=== PATIENT | female | born 1970 | race Caucasian/White ===

== ENCOUNTER 2017-06-14 10:19 | Emergency (ER) | payer MEDICAID ==
[~2017-06-14] VITALS: Ht 162.6 cm; Wt 83.9 kg
[2017-06-14] MEDS ORDERED: TRILEPTAL150 MG PO (10:28)
[2017-06-14] MEDS ORDERED: VISTARIL50 MG PO (10:28)
[2017-06-14] MEDS ORDERED: BENZTROPINE MESY2 MG PO (10:29)
[2017-06-14] MEDS ORDERED: MINIPRESS5 MG PO (10:29)
[2017-06-14] MEDS ORDERED: NEURONTIN300 MG PO (10:29)
[2017-06-14] MEDS ORDERED: THORAZINE PO (10:30)
[2017-06-14] MEDS ORDERED: ELAVIL PO (10:30)
[2017-06-14] MEDS ORDERED: AUGMENTIN 875-1 EACH PO (10:49)
== END 2017-06-14 10:58 | disposition home or self-care (01) ==
LOC: ED 10:19
DX: H66.92 Otitis media, unspecified, left ear (principal); F43.10 Post-traumatic stress disorder, unspecified; F17.200 Nicotine dependence, unspecified, uncomplicated; Z98.51 Tubal ligation status; Z88.5 Allergy status to narcotic agent; Z79.899 Other long term (current) drug therapy
CPT/HCPCS: 99283

== ENCOUNTER 2017-06-22 20:05 | Emergency (ER) | payer MEDICAID ==
[~2017-06-22] VITALS: Ht 162.6 cm; Wt 83.9 kg
[~2017-06-22 20:05] MED LIST: AUGMENTIN 875-1 EACH PO; BENZTROPINE MESY2 MG PO; ELAVIL PO; MINIPRESS5 MG PO; NEURONTIN300 MG PO; THORAZINE PO; TRILEPTAL150 MG PO; VISTARIL50 MG PO
[2017-06-22] MEDS ORDERED: AMITRIPTYLINE H50 MG PO (20:24)
[2017-06-22] MEDS ORDERED: LEVOTHYROXINE150 MCG PO (20:24)
[2017-06-22] MEDS ORDERED: CHLORPROPAMIDE PO (20:26)
[2017-06-22] MEDS ORDERED: ZOVIRAX400 MG PO (20:26)
== END 2017-06-22 23:34 | disposition home or self-care (01) ==
LOC: ED 20:05
DX: R45.851 Suicidal ideations (principal); Z00.8 Encounter for other general examination; F43.10 Post-traumatic stress disorder, unspecified; F17.200 Nicotine dependence, unspecified, uncomplicated; Z87.891 Personal history of nicotine dependence; Z98.51 Tubal ligation status; Z88.5 Allergy status to narcotic agent; Z79.899 Other long term (current) drug therapy
CPT/HCPCS: 80053; 80176; 81001; 84443; 85025; 99283; G0480

== ENCOUNTER 2017-07-04 17:24 | Emergency (ER) | payer OTHER ==
[~2017-07-04] VITALS: Ht 162.6 cm; Wt 83.9 kg
[~2017-07-04 17:24] MED LIST changes: +AMITRIPTYLINE H50 MG PO; +CHLORPROPAMIDE PO; +LEVOTHYROXINE150 MCG PO; +ZOVIRAX400 MG PO
[2017-07-04] MEDS ORDERED: VIIBRYD10 MG PO (18:44)
[2017-07-04] MEDS ORDERED: CHLORPROMAZINE100 MG PO (18:45)
[2017-07-04] MEDS ORDERED: CHLORPROMAZINE25 MG PO (18:45)
[2017-07-04] MEDS ORDERED: TRAZODONE HCL100 MG PO (18:46)
== END 2017-07-04 20:50 | disposition home or self-care (01) ==
LOC: ED 17:24
DX: E03.9 Hypothyroidism, unspecified (principal); Z00.8 Encounter for other general examination; F17.200 Nicotine dependence, unspecified, uncomplicated; Z98.51 Tubal ligation status; Z88.1 Allergy status to other antibiotic agents; Z88.5 Allergy status to narcotic agent; Z79.899 Other long term (current) drug therapy
CPT/HCPCS: 80053; 80176; 81001; 84439; 84443; 84480; 84703; 85025; 99283; G0480

== ENCOUNTER 2017-07-18 12:11 | Emergency (ER) | payer OTHER ==
[~2017-07-18] VITALS: Ht 162.6 cm; Wt 83.9 kg
[~2017-07-18 12:11] MED LIST changes: +CHLORPROMAZINE100 MG PO; +CHLORPROMAZINE25 MG PO; +TRAZODONE HCL100 MG PO; +VIIBRYD10 MG PO
[2017-07-18] MEDS ORDERED: THORAZINE (12:28)
[2017-07-18] MEDS ORDERED: KETOROLAC TROME10 MG PO (13:06)
--- NOTE | 2017-07-18 18:49 | EKG ---
[facility] [address] [facility] [place] [address] Signed Normal sinus rhythm Normal ECG No previous ECGs available Confirmed by LAURA JEFFERS MD ([id number]) on 07/18/2017 6:48:54 PM Electronically Signed By: LAURA JEFFERS MD 07/18/17 1849 PATIENT NAME: FABIO OCAMPO Electrocardiogram DATE OF : 72 PHYSICIAN: LAURA JEFFERS MD REPORT #: [id number] REPORT IS CONFIDENTIAL AND NOT TO BE RELEASED WITHOUT AUTHORIZATION
[2017-07-19] MEDS ORDERED: LEVOTHYROXINE175 MCG PO (10:58)
== END 2017-07-18 13:25 | disposition home or self-care (01) ==
LOC: ED 12:11
DX: M94.0 Chondrocostal junction syndrome [Tietze] (principal); F17.200 Nicotine dependence, unspecified, uncomplicated; Z88.1 Allergy status to other antibiotic agents; Z88.5 Allergy status to narcotic agent; Z98.51 Tubal ligation status; Z79.899 Other long term (current) drug therapy
CPT/HCPCS: 80053; 84484; 85025; 93005; 93010; 96374; 96375; 99284; J1885; J2405

== ENCOUNTER 2017-07-19 10:07 | Emergency (ER) | payer OTHER ==
[~2017-07-19] VITALS: Ht 162.6 cm; Wt 83.9 kg
[~2017-07-19 10:07] MED LIST changes: +KETOROLAC TROME10 MG PO; +THORAZINE
[2017-07-19] MEDS ORDERED: LEVOTHYROXINE175 MCG PO (10:58)
== END 2017-07-19 11:09 | disposition home or self-care (01) ==
LOC: ED 10:07
DX: E03.9 Hypothyroidism, unspecified (principal); F17.200 Nicotine dependence, unspecified, uncomplicated; Z98.51 Tubal ligation status; Z88.1 Allergy status to other antibiotic agents; Z88.5 Allergy status to narcotic agent; Z79.899 Other long term (current) drug therapy
CPT/HCPCS: 99283

== ENCOUNTER 2017-10-20 08:37 | Emergency (ER) | payer OTHER ==
[~2017-10-20] VITALS: Ht 162.6 cm; Wt 83.9 kg
[~2017-10-20 08:37] MED LIST changes: +LEVOTHYROXINE175 MCG PO
[2017-10-20] MEDS ORDERED: HYDROXYZINE PAM50 MG PO (08:49)
[2017-10-20] MEDS ORDERED: NP THYROID30 MG PO (08:49)
[2017-10-20] MEDS ORDERED: ZITHROMAX250 MG PO (09:06)
[2017-10-20] MEDS ORDERED: VENTOLIN HFA18 GM INH (09:06)
[2018-01-11] MEDS ORDERED: LEVO-T150 MCG PO (19:03)
[2018-01-11] MEDS ORDERED: VISTARIL50 MG PO (19:03)
== END 2017-10-20 09:54 | disposition home or self-care (01) ==
LOC: ED 08:37
DX: J45.909 Unspecified asthma, uncomplicated (principal); E03.9 Hypothyroidism, unspecified; F17.200 Nicotine dependence, unspecified, uncomplicated; Z88.1 Allergy status to other antibiotic agents; Z88.5 Allergy status to narcotic agent; Z79.899 Other long term (current) drug therapy
CPT/HCPCS: 94640; 99283

== ENCOUNTER 2017-10-24 10:38 | Emergency (ER) | payer OTHER ==
[~2017-10-24] VITALS: Ht 162.6 cm; Wt 88.5 kg
[~2017-10-24 10:38] MED LIST changes: +HYDROXYZINE PAM50 MG PO; +NP THYROID30 MG PO; +VENTOLIN HFA18 GM INH; +ZITHROMAX250 MG PO
[2017-10-24] MEDS ORDERED: AUGMENTIN 875-1 EACH PO (11:03)
[2017-10-24] MEDS ORDERED: METHYLPREDNISOLO4 M1 PO (11:03)
[2017-10-24] MEDS ORDERED: VENTOLIN HFA18 GM INH (11:03)
[2018-01-11] MEDS ORDERED: VISTARIL50 MG PO (19:03)
[2018-01-11] MEDS ORDERED: LEVO-T150 MCG PO (19:03)
== END 2017-10-24 11:10 | disposition home or self-care (01) ==
LOC: ED 10:38
DX: J42 Unspecified chronic bronchitis (principal); F17.200 Nicotine dependence, unspecified, uncomplicated; E03.9 Hypothyroidism, unspecified; Z88.1 Allergy status to other antibiotic agents; Z79.899 Other long term (current) drug therapy
CPT/HCPCS: 99283

== ENCOUNTER 2018-01-09 14:51 | Emergency (ER) | payer OTHER ==
[~2018-01-09] VITALS: Ht 162.6 cm; Wt 88.5 kg
[~2018-01-09 14:51] MED LIST changes: +METHYLPREDNISOLO4 M1 PO
[2018-01-09] MEDS ORDERED: OLANZAPINE20 MG PO (15:10)
[2018-01-11] MEDS ORDERED: LEVO-T150 MCG PO (19:03)
[2018-01-11] MEDS ORDERED: VISTARIL50 MG PO (19:03)
== END 2018-01-09 15:30 | disposition home or self-care (01) ==
LOC: ED 14:51
DX: F39 Unspecified mood [affective] disorder (principal); F17.200 Nicotine dependence, unspecified, uncomplicated; E03.9 Hypothyroidism, unspecified; Z88.0 Allergy status to penicillin; Z88.5 Allergy status to narcotic agent; Z79.899 Other long term (current) drug therapy
CPT/HCPCS: 99283

== ENCOUNTER → 2018-01-11 | Emergency (ER) | payer OTHER ==
[~2018-01-11] VITALS: Ht 165.1 cm; Wt 88.5 kg
[~2018-01-11] MED LIST changes: +LEVO-T150 MCG PO; +OLANZAPINE20 MG PO
== END ==
LOC: ED 18:24
DX: G47.00 Insomnia, unspecified (principal); F17.200 Nicotine dependence, unspecified, uncomplicated; Z88.8 Allergy status to other drugs, medicaments and biological substances; Z88.5 Allergy status to narcotic agent; Z79.899 Other long term (current) drug therapy
CPT/HCPCS: 99281

== ENCOUNTER 2018-09-01 13:21 | Emergency (ER) | payer OTHER ==
[~2018-09-01] VITALS: Ht 165.1 cm; Wt 88.5 kg
[~2018-09-01 13:21] MED LIST changes: +OMEPRAZOLE20 MG PO; +ONDANSETRON ODT8 MG PO; +RESTORIL30 MG PO
--- OUTSIDE RECORDS SUMMARY | 2018-09-01 13:26 | XMS ---
PreManage Notification: FABIO OCAMPO Security Senior Staff Accountant Events No recent Security Events currently on file CRITERIA MET - Group Notification CARE PROVIDERS DANNIELLE BESS Physician Furniture Crater 03/16/2018-Current PHONE: [phone] [facility] Provider Current PHONE: [phone] BEENA MONAHAN Primary Care [facility] PHONE: [phone] Tomer Caldwell - Case or Frog Or Oyster Farmworker Current [employer] PHONE: [phone] Jerome has no Care Guidelines for this patient. Care History Substance Use/Overdose 10/31/2016 [facility] could benefit from a dual diagnosis evaluation for substance and mental health evaluation for treatment. Maria Guadalupe VISIT COUNT (12 MO.) 6 P[facility] TOTAL 6 NOTE: Visits indicate total known visits. ED/UCC VISIT TRACKING (12 MO.) 09/01/2018 13:22 [facility] [place] TYPE: Emergency COMPLAINT: - PELVIC PAIN/CRAMPS 03/15/2018 16:02 [facility] [place] TYPE: Emergency COMPLAINT: - ABD/BACK PAIN DIAGNOSES: - Allergy status to narcotic agent status - Allergy status to penicillin - Right upper quadrant pain - Other custodial (current) drug therapy - Nicotine dependence, unspecified, uncomplicated - Gastritis, unspecified, without bleeding 01/11/2018 18:25 [facility] [place] TYPE: Emergency COMPLAINT: - POSS INSOMNIA DIAGNOSES: - Allergy status to other drugs, medicaments and biological substances status - Allergy status to narcotic agent status - Nicotine dependence, unspecified, uncomplicated - Insomnia, unspecified - Other cooker casing (current) drug therapy 01/09/2018 14:53 [facility] [place] TYPE: Emergency COMPLAINT: - MEDICAL CLEARANCE DIAGNOSES: - Hypothyroidism, unspecified - Allergy status to penicillin - Allergy status to narcotic agent status - Nicotine dependence, unspecified, uncomplicated - Sleep disorder, unspecified - Other custodial (current) drug therapy - Unspecified mood [affective] disorder 10/24/2017 10:38 [facility] [place] TYPE: Emergency COMPLAINT: - CONGESTION,COUGH DIAGNOSES: - Nicotine dependence, unspecified, uncomplicated - Unspecified chronic bronchitis - Other custodial (current) drug therapy - Hypothyroidism, unspecified - Allergy status to other antibiotic agents status - Cough 10/20/2017 08:38 [facility] [place] TYPE: Emergency COMPLAINT: - COUGH DIAGNOSES: - Allergy status to narcotic agent status - Nicotine dependence, unspecified, uncomplicated - Allergy status to other antibiotic agents status - Hypothyroidism, unspecified - Unspecified asthma, uncomplicated - Other custodial (current) drug therapy - Cough INPATIENT VISIT TRACKING (12 MO.) No inpatient visits to display in this time frame [id number]
[2018-09-01] MEDS ORDERED: AMBIEN10 MG PO (13:47)
== END 2018-09-01 15:49 | disposition home or self-care (01) ==
LOC: ED 13:21
DX: N83.201 Unspecified ovarian cyst, right side (principal); G47.00 Insomnia, unspecified; F43.10 Post-traumatic stress disorder, unspecified; F17.200 Nicotine dependence, unspecified, uncomplicated; Z88.6 Allergy status to analgesic agent; Z88.5 Allergy status to narcotic agent; Z88.0 Allergy status to penicillin; Z79.899 Other long term (current) drug therapy
CPT/HCPCS: 76830; 76856; 81001; 87210; 87491; 87591; 99284-25

== ENCOUNTER 2018-11-03 11:38 | Emergency (ER) | payer OTHER ==
[~2018-11-03] VITALS: Ht 165.1 cm; Wt 90.7 kg
--- OUTSIDE RECORDS SUMMARY | ~2018-11-03 | XMS | Clinical Summary ---
Demographics + + + | Address | [address] | | | [place] [address] | + + + | Home Phone | | + + + | Preferred Language | Unknown | + + + | Marital Status | | + + + | Hindu Affiliation | Unknown | + + + | Race | Unknown | + + + | Ethnic Group | Unknown | + + + Author + + + | Author | [facility] [employer] | + + + | Organization | [facility] [employer] [facility] | + + + | Address | Unknown | + + + | Phone | Unavailable | + + + Support + + +---------+ + | Name | Relationship | Address | Phone | + + +---------+ + | Contact,No | ECON | Unknown | | + + +---------+ + Care Team Providers + +------+ + | Care Mining Engineering Technologist Name | Role | Phone | + [...] | + + + Plan of Treatment +--------+---------+ + + + | Date | Type | Specialty | Care Team | Description | +--------+---------+ + + + | 01/03/ | Office | | [place], | | | 2018 | Visit | | Katherine Meeks | | | | | | [address] | | | | | | [place] [address] | | | | | | [phone] | | | | | | | | +--------+---------+ + + + Results Not on filefrom Last 3 Months Insurance + +--------+ +------+-------+ + | Payer | Benefi | Subscriber | Type | Phone | Address | | | t Plan | ID | | | | | | / | | | | | | | Group | | | | | + +--------+ +------+-------+ + | MEDICAID | [place] | [id number] | | | [address] | | | [address] | | | | [place] | | | [place] | | | | [phone] | | | ELECTROENCEPHALOGRAPH TECHNICIAN | | | | | + +--------+ [...] | | al/Fam | | 1970 | [phone] | [place] [address] | | | emily | | | [phone] | | + +--------+ +--------+ + +"
--- OUTSIDE RECORDS SUMMARY | ~2018-11-03 | XMS | Clinical Summary ---
Demographics + + + | Address | [address] | | | [place] [address] | + + + | Home Phone | | + + + | Preferred Language | Unknown | + + + | Marital Status | | + + + | Evangelical Affiliation | Unknown | + + + | Race | Unknown | + + + | Ethnic Group | Unknown | + + + Author + + + | Author | [facility] [employer] | + + + | Organization | [facility] [employer] [facility] | + + + | Address | Unknown | + + + | Phone | Unavailable | + + + Support + + +---------+ + | Name | Relationship | Address | Phone | + + +---------+ + | Contact,No | ECON | Unknown | | + + +---------+ + Care Team Providers + +------+ + | Care Market Development Director Name | Role | Phone | + [...] | | | | | [place] [address] | | | | | | [phone] | | | | | | | [...] +------+-------+ + | MEDICAID | [place] | [id number] | | | [address] | | | [address] | | | | [place] | | | [place] | | | | [address] | | | RADIO HOST | | | | | + +--------+ [...] | | al/Fam | | 1970 | [phone] | [place] [address] | | | emily | | | [phone] | | + +--------+ +--------+ + +"
[~2018-11-03 11:38] MED LIST changes: +AMBIEN10 MG PO
--- OUTSIDE RECORDS SUMMARY | 2018-11-03 11:40 | XMS ---
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 Care History Substance Use/Overdose 10/31/2016 [facility] could benefit from a dual diagnosis evaluation for substance and mental health evaluation for treatment. Maria Guadalupe VISIT COUNT (12 MO.) 5 PING Puentes TOTAL 5 NOTE: Visits indicate total known visits. ED/UCC VISIT TRACKING (12 MO.) 11/03/2018 11:38 [facility] [place] TYPE: Emergency COMPLAINT: - RASH,SOB 09/01/2018 13:22 [facility] [place] TYPE: Emergency COMPLAINT: - PELVIC PAIN/CRAMPS DIAGNOSES: - Post-traumatic stress disorder, unspecified - Other long-term (current) drug therapy - Allergy status to narcotic agent status - Unspecified ovarian cyst, right side - Nicotine dependence, unspecified, uncomplicated - Pelvic and perineal pain - Allergy status to penicillin - Insomnia, unspecified - Allergy status to analgesic agent status 03/15/2018 16:02 [facility] [place] TYPE: Emergency COMPLAINT: - ABD/BACK PAIN DIAGNOSES: - Allergy status to narcotic agent status - Allergy status to penicillin - Right upper quadrant pain - Other dedicated intermodal truck driver (current) drug therapy - Nicotine dependence, unspecified, uncomplicated - Gastritis, unspecified, without bleeding 01/11/2018 18:25 [facility] [place] TYPE: Emergency COMPLAINT: - POSS INSOMNIA DIAGNOSES: - Allergy status to other drugs, medicaments and biological substances status - Allergy status to narcotic agent status - Nicotine dependence, unspecified, uncomplicated - Insomnia, unspecified - Other dedicated intermodal truck driver (current) drug therapy 01/09/2018 14:[address] [facility] [place] TYPE: Emergency COMPLAINT: - MEDICAL CLEARANCE DIAGNOSES: - Hypothyroidism, unspecified - Allergy status to penicillin - Allergy status to narcotic agent status - Nicotine dependence, unspecified, uncomplicated - Sleep disorder, unspecified - Other long-term (current) drug therapy - Unspecified mood [affective] disorder INPATIENT VISIT TRACKING (12 MO.) No inpatient visits to display in this time frame [id number]
[2018-11-03] MEDS ORDERED: PREDNISONE20 MG PO (13:27)
[2018-11-03] MEDS ORDERED: VENTOLIN HFA18 GM INH (13:27)
== END 2018-11-03 13:34 | disposition home or self-care (01) ==
LOC: ED 11:38
DX: J40 Bronchitis, not specified as acute or chronic (principal); F43.10 Post-traumatic stress disorder, unspecified; F17.200 Nicotine dependence, unspecified, uncomplicated; Z88.5 Allergy status to narcotic agent; Z88.0 Allergy status to penicillin; Z79.899 Other long term (current) drug therapy
CPT/HCPCS: 71045; 87502; 99283-25; J7512

== ENCOUNTER 2018-12-03 15:27 | Emergency (ER) | payer OTHER ==
[~2018-12-03] VITALS: Ht 165.1 cm; Wt 90.7 kg
--- OUTSIDE RECORDS SUMMARY | ~2018-12-03 | XMS | Clinical Summary ---
Demographics + + + | Address | [address] | | | [place] [address] | + + + | Home Phone | | + + + | Preferred Language | Unknown | + + + | Marital Status | | + + + | Cheondoism Affiliation | Unknown | + + + | Race | Unknown | + + + | Ethnic Group | Unknown | + + + Author + + + | Author | [facility] [employer] | + + + | Organization | [facility] [employer] [facility] | + + + | Address | Unknown | + + + | Phone | Unavailable | + + + Support + + +---------+ + | Name | Relationship | Address | Phone | + + +---------+ + | Contact,No | ECON | Unknown | | + + +---------+ + Care Team Providers + +------+ + | Care Machine Design Engineer Name | Role | Phone | + [...] | | | | | [place] [address] | | | | | | [phone] | | | | | | | [...] +------+-------+ + | MEDICAID | [place] | [id number] | | | [address] | | | [address] | | | | [place] | | | [place] | | | | [phone] | | | HISTOTECHNOLOGIST SUPERVISOR | | | | | + [...] | | al/Fam | | 1970 | [phone] | [place] [address] | | | emily | | | [phone] | | + +--------+ +--------+ + +"
--- OUTSIDE RECORDS SUMMARY | ~2018-12-03 | XMS | Clinical Summary ---
Demographics + + + | Address | [address] | | | [place] [address] | + + + | Home Phone | | + + + | Preferred Language | Unknown | + + + | Marital Status | | + + + | Mosque Affiliation | Unknown | + + + | Race | Unknown | + + + | Ethnic Group | Unknown | + + + Author + + + | Author | [facility] [employer] | + + + | Organization | [facility] | + + + | Address | Unknown | + + + | Phone | Unavailable | + + + Support + + +---------+ + | Name | Relationship | Address | Phone | + + +---------+ + | Contact,No | ECON | Unknown | | + + +---------+ + Care Team Providers + +------+ + | Care Patient Resource Coordinator Name | Role | Phone | + [...] | | | | | [place] [address] | | | | | | [phone] | | | | | | | [...] +------+-------+ + | MEDICAID | [place] | [id number] | | | [address] | | | [address] | | | | [place] | | | [place] | | | | [phone] | | | HEALTH AND SAFETY REPRESENTATIVE | | | | | + +--------+ [...] | | al/Fam | | 1970 | [phone] | [place] [address] | | | emily | | | [phone] | | + +--------+ +--------+ + +"
[~2018-12-03 15:27] MED LIST changes: +PREDNISONE20 MG PO
--- OUTSIDE RECORDS SUMMARY | 2018-12-03 15:44 | XMS ---
PreManage Notification: FABIO OCAMPO Security Stoker Installer Events No recent Security Events currently on file CRITERIA MET - Group Notification - [facility] - Has Care Guidelines - PDMP - [facility] - 2 Visits in 30 Days CARE PROVIDERS DANNIELLE BESS Physician 03/16/2018-Current PHONE: [phone] [facility] Provider Current PHONE: [phone] BEENA MONAHAN Primary Care [facility] PHONE: [phone] Tomer Caldwell - Case or Insurance Assistant Current [facility] PHONE: [phone] Jerome has no Care Guidelines for this patient. Care History Medical/Surgical 11/05/2018 [facility] - PATIENT CURRENTLY WORKS WITH [employer]- CURRENTLY BEING PRESCRIBED MEDICATIONS BY AJAY ONOFRE. Substance Use/Overdose 10/31/2016 [facility] could benefit from a dual diagnosis evaluation for substance and mental health evaluation for treatment. Maria Guadalupe VISIT COUNT (12 MO.) 6 [facility]. TOTAL 6 NOTE: Visits indicate total known visits. ED/UCC VISIT TRACKING (12 MO.) 12/03/2018 15:27 [facility] [place] TYPE: Emergency COMPLAINT: - BACK PAIN,BLUR VISION 11/03/2018 11:38 [facility] [place] TYPE: Emergency COMPLAINT: - RASH,SOB DIAGNOSES: - Nicotine dependence, unspecified, uncomplicated - Cough - Allergy status to narcotic agent status - Post-traumatic stress disorder, unspecified - Allergy status to penicillin - Bronchitis, not specified as acute or chronic - Other terminal operator (current) drug therapy 09/01/2018 13:22 [facility] [place] TYPE: Emergency COMPLAINT: - PELVIC PAIN/CRAMPS DIAGNOSES: - Post-traumatic stress disorder, unspecified - Other halfway (current) drug therapy - Allergy status to [...] - Right upper quadrant pain - Other halfway (current) drug therapy - Nicotine dependence, unspecified, uncomplicated - Gastritis, unspecified, without bleeding 01/11/2018 18:25 [facility] [place] TYPE: Emergency COMPLAINT: - POSS INSOMNIA DIAGNOSES: - Allergy status to other drugs, medicaments and biological substances status - Allergy status to narcotic agent status - Nicotine dependence, unspecified, uncomplicated - Insomnia, unspecified - Other terminal operator (current) drug therapy 01/09/2018 14:53 [facility] [place] TYPE: Emergency COMPLAINT: - MEDICAL CLEARANCE DIAGNOSES: - Hypothyroidism, unspecified - Allergy status to penicillin - Allergy status to narcotic agent status - Nicotine dependence, unspecified, uncomplicated - Sleep disorder, unspecified - Other halfway (current) drug therapy - Unspecified mood [affective] disorder INPATIENT VISIT TRACKING (12 MO.) No inpatient visits to display in this time frame [id number]
[2018-12-03] MEDS ORDERED: PREDNISONE20 MG PO (17:34)
== END 2018-12-03 17:49 | disposition home or self-care (01) ==
LOC: ED 15:27
DX: M50.30 Other cervical disc degeneration, unspecified cervical region (principal); M79.601 Pain in right arm; M79.602 Pain in left arm; F43.10 Post-traumatic stress disorder, unspecified; Z88.5 Allergy status to narcotic agent; Z88.0 Allergy status to penicillin; Z79.899 Other long term (current) drug therapy
CPT/HCPCS: 36415; 72040; 80053; 85025; 96372; 99283-25; J1100; J1885

== ENCOUNTER 2018-12-15 13:30 | Emergency (ER) | payer OTHER ==
[~2018-12-15] VITALS: Ht 165.1 cm; Wt 90.7 kg
--- OUTSIDE RECORDS SUMMARY | ~2018-12-15 | XMS | Clinical Summary ---
Demographics + + + | Address | [address] | | | [place] [address] | + + + | Home Phone | | + + + | Preferred Language | Unknown | + + + | Marital Status | | + + + | Tenriism Affiliation | Unknown | + + + | Race | Unknown | + + + | Ethnic Group | Unknown | + + + Author + + + | Author | [facility] [employer] | + + + | Organization | [facility] [facility] | + + + | Address | Unknown | + + + | Phone | Unavailable | + + + Support + + +---------+ + | Name | Relationship | Address | Phone | + + +---------+ + | Contact,No | ECON | Unknown | | + + +---------+ + Care Team Providers + +------+ + | Care Cell Tower Climber Name | Role | Phone | + [...] | | | | | [place] [address] | | | | | | [phone] | | | | | | | [...] +------+-------+ + | MEDICAID | [place] | [id number] | | | [address] | | | [address] | | | | [place] | | | [place] | | | | [address] | | | HOOP BENDING MACHINE OPERATOR | | | | | + +--------+ [...] | | al/Fam | | 1970 | [phone] | [place] [address] | | | emily | | | [phone] | | + +--------+ +--------+ + +"
--- OUTSIDE RECORDS SUMMARY | ~2018-12-15 | XMS | Clinical Summary ---
Demographics + + + | Address | [address] | | | [place] [address] | + + + | Home Phone | | + + + | Preferred Language | Unknown | + + + | Marital Status | | + + + | Latter Day Affiliation | Unknown | + + + | Race | Unknown | + + + | Ethnic Group | Unknown | + + + Author + + + | Author | [facility] [employer] | + + + | Organization | [facility] | + + + | Address | Unknown | + + + | Phone | Unavailable | + + + Support + + +---------+ + | Name | Relationship | Address | Phone | + + +---------+ + | Contact,No | ECON | Unknown | | + + +---------+ + Care Team Providers + +------+ + | Care Dust Sampler Name | Role | Phone | + [...] | | | | | [place] [address] | | | | | | [phone] | | | | | | | [...] +------+-------+ + | MEDICAID | [place] | [id number] | | | [address] | | | [address] | | | | [place] | | | [place] | | | | [address] | | | BARREL DRUM CUTTER | | | | | + +--------+ [...] | | al/Fam | | 1970 | [phone] | [place] [address] | | | emily | | | [phone] | | + +--------+ +--------+ + +"
--- OUTSIDE RECORDS SUMMARY | 2018-12-15 13:32 | XMS ---
PreManage Notification: FABIO OCAMPO Security Controls Project Engineer Events No recent Security Events currently on file CRITERIA MET - Group Notification - [facility] - Has Care Guidelines - PDMP - [facility] - 2 Visits in 30 Days CARE PROVIDERS DANNIELLE BESS Physician 03/16/2018-Current PHONE: [phone] [facility] Provider Current PHONE: [phone] BEENA MONAHAN Primary Care [facility] PHONE: [phone] Tomre Caldwell - Case or Doll Surgeon Current [facility] PHONE: [phone] Jerome has no Care Guidelines for this patient. Care History Medical/Surgical 12/04/2018 [facility] - EOIPA CASE MANAGEMENT REFERRAL MADE- PATIENT EOCCO- CHRONIC PAIN CONDITIONS. 11/05/2018 [facility] - PATIENT CURRENTLY WORKS WITH [employer]- CURRENTLY BEING PRESCRIBED MEDICATIONS BY AJAY ONOFRE. Substance Use/Overdose 10/31/2016 [facility] could benefit from a dual diagnosis evaluation for substance and mental health evaluation for treatment. Maria Guadalupe VISIT COUNT (12 MO.) 7 [facility]. TOTAL 7 NOTE: Visits indicate total known visits. ED/UCC VISIT TRACKING (12 MO.) 12/15/2018 13:31 [facility] [place] TYPE: Emergency COMPLAINT: - BACK AND NECK PAIN 12/03/2018 15:27 [facility] [place] TYPE: Emergency COMPLAINT: - BACK PAIN,BLUR VISION DIAGNOSES: - Other cervical disc degeneration, unspecified cervical region - Pain in right arm - Pain in left arm - Cervicalgia - Allergy status to narcotic agent status - Allergy status to penicillin - Post-traumatic stress disorder, unspecified - Other skilled nursing (current) drug therapy 11/03/2018 11:38 [facility] [place] TYPE: Emergency COMPLAINT: - RASH,SOB DIAGNOSES: - Nicotine dependence, unspecified, uncomplicated - Cough - Allergy status to narcotic agent status - Post-traumatic stress disorder, unspecified - Allergy status to penicillin - Bronchitis, not specified as acute or chronic - Other cylinder dyer (current) drug therapy 09/01/2018 13:22 [facility] [place] TYPE: Emergency COMPLAINT: - PELVIC PAIN/CRAMPS DIAGNOSES: - Post-traumatic stress disorder, unspecified - Other cylinder dyer (current) drug therapy - Allergy status to [...] - Right upper quadrant pain - Other cylinder dyer (current) drug therapy - Nicotine dependence, unspecified, uncomplicated - Gastritis, unspecified, without bleeding 01/11/2018 18:[address] [facility] [place] TYPE: Emergency COMPLAINT: - POSS INSOMNIA DIAGNOSES: - Allergy status to other drugs, medicaments and biological substances status - Allergy status to narcotic agent status - Nicotine dependence, unspecified, uncomplicated - Insomnia, unspecified - Other cylinder dyer (current) drug therapy 01/09/2018 14:[address] [facility] [place] TYPE: Emergency COMPLAINT: - MEDICAL CLEARANCE DIAGNOSES: - Hypothyroidism, unspecified - Allergy status to penicillin - Allergy status to narcotic agent status - Nicotine dependence, unspecified, uncomplicated - Sleep disorder, unspecified - Other skilled nursing (current) drug therapy - Unspecified mood [affective] disorder INPATIENT VISIT TRACKING (12 MO.) No inpatient visits to display in this time frame [id number]
[2018-12-15] MEDS ORDERED: BRINTELLIX20 MG (13:50)
[2018-12-15] MEDS ORDERED: TRAMADOL HCL50 MG PO (13:55)
[2018-12-15] MEDS ORDERED: CYCLOBENZAPRINE5 MG PO (13:55)
== END 2018-12-15 14:17 | disposition home or self-care (01) ==
LOC: ED 13:30
DX: M54.12 Radiculopathy, cervical region (principal); F43.10 Post-traumatic stress disorder, unspecified; F17.200 Nicotine dependence, unspecified, uncomplicated; E89.0 Postprocedural hypothyroidism; Z88.5 Allergy status to narcotic agent; Z88.1 Allergy status to other antibiotic agents; Z79.899 Other long term (current) drug therapy
CPT/HCPCS: 96372; 99282-25; J1885

== ENCOUNTER 2019-01-08 17:36 | Emergency (ER) | payer OTHER ==
[~2019-01-08] VITALS: Ht 165.1 cm; Wt 90.7 kg
--- OUTSIDE RECORDS SUMMARY | ~2019-01-08 | XMS | Encounter Summary ---
Demographics + + + | Address | [address] | | | [place] [address] | + + + | Home Phone | | + + + | Preferred Language | Unknown | + + + | Marital Status | | + + + | Sikh Affiliation | Unknown | + + + | Race | Unknown | + + + | Ethnic Group | Unknown | + + + Author + + + | Author | [facility] | + + + | Organization | [facility] | + + + | Address | Unknown | + + + | Phone | Unavailable | + + + Support + + +---------+ + | Name | Relationship | Address | Phone | + + +---------+ + | Contact,No | ECON | Unknown | | + + +---------+ + Care Team Providers + +------+ + | Care Hop Grower Name | Role | Phone | + +------+ + | Fay Kennedy | PCP | Unavailable | + +------+ + Encounter Details +--------+ + + + + | Date | Type | Department | Care Team | Description | +--------+ + + + + | 01/01/ | Documentati | [facility] | Koko Willis DO | | | 2019 | on Only | Neuroscience Center | [address] | | | | | [address] | [place], [place] | | | | | [place], [place] | [address] | | | | | [address] | | | | | | [phone] | | | +--------+ + + + + Social History + +-------+ +--------+------+ | Tobacco [...] on file | | + + + as of this encounter Plan of Treatment Not on fileas of this encounter Visit Diagnoses Not on filein this encounter"
--- OUTSIDE RECORDS SUMMARY | ~2019-01-08 | XMS | Encounter Summary ---
Demographics + + + | Address | [address] | | | [place] [address] | + + + | Home Phone | | + + + | Preferred Language | Unknown | + + + | Marital Status | | + + + | Orthodox Affiliation | Unknown | + + + | Race | Unknown | + + + | Ethnic Group | Unknown | + + + Author + + + | Author | [facility] | + + + | Organization | [facility] | + + + | Address | Unknown | + + + | Phone | Unavailable | + + + Support + + +---------+ + | Name | Relationship | Address | Phone | + + +---------+ + | Contact,No | ECON | Unknown | | + + +---------+ + Care Team Providers + +------+ + | Care Watch Assembly Instructor Name | Role | Phone | + +------+ + | Fay Kennedy | PCP | Unavailable | + +------+ + Encounter Details +--------+ + + + + | Date | Type | Department | Care Team | Description | +--------+ + + + + | 01/03/ | Telephone | [facility] | Cresencio Hall, | | | 2018 | | Pulmonology [address] | [address] | | | | | [place] | | | | | | [place] | | | | | | [address] | | | | | | [phone] | | | +--------+ + + + [...]
--- OUTSIDE RECORDS SUMMARY | ~2019-01-08 | XMS | Encounter Summary ---
Demographics + + + | Address | [address] | | | [place] [address] | + + + | Home Phone | | + + + | Preferred Language | Unknown | + + + | Marital Status | | + + + | Confucianism Affiliation | Unknown | + + + | Race | Unknown | + + + | Ethnic Group | Unknown | + + + Author + + + | Author | [facility] | + + + | Organization | [facility] | + + + | Address | Unknown | + + + | Phone | Unavailable | + + + Support + + +---------+ + | Name | Relationship | Address | Phone | + + +---------+ + | Contact,No | ECON | Unknown | | + + +---------+ + Care Team Providers + +------+ + | Care Marine Pipefitter Helper Name | Role | Phone | + +------+ + | Fay Kennedy | PCP | Unavailable | + +------+ + Reason for Visit +--------+ + | Reason | Comments | +--------+ + | Other | Referral for Neurosurgery from [facility] 12/27/18 | +--------+ + Encounter Details +--------+ + + + + | Date | Type | Department | Care Team | Description | +--------+ + + + + | 12/27/ | Documentati | [facility] | Maritza Patricia CMA | Other (Referral for | | 2019 | on Only | [facility] Center | | Neurosurgery from | | | | [address] | | [facility] | | | | [place], [place] | | Medicine 12/27/18) | | | | [address] | | | | | | [phone] | | | +--------+ + + + [...]
--- OUTSIDE RECORDS SUMMARY | ~2019-01-08 | XMS | Clinical Summary ---
Demographics + + + | Address | [address] | | | [place] [address] | + + + | Home Phone | | + + + | Preferred Language | Unknown | + + + | Marital Status | | + + + | Hoahaoism Affiliation | Unknown | + + + | Race | Unknown | + + + | Ethnic Group | Unknown | + + + Author + + + | Author | [facility] | + + + | Organization | [facility] | + + + | Address | Unknown | + + + | Phone | Unavailable | + + + Support + + +---------+ + | Name | Relationship | Address | Phone | + + +---------+ + | Contact,No | ECON | Unknown | | + + +---------+ + Care Team Providers + +------+ + | Care Pull Over Machine Operator Name | Role | Phone | + +------+ + | Fay Kennedy | PP | Unavailable | + +------+ + Allergies Not on File Current Medications Not on file Active Problems Not on file Encounters +--------+ + + + + | Date | Type | Specialty | Care Team | Description | +--------+ + + + + | 01/03/ | Telephone | | Cresencio Hall, | | | 2018 | | | MA | | +--------+ + + + + | 01/01/ | Documentati | | Koko Willis DO | | | 2019 | on Only | | | | +--------+ + + + + | 12/27/ | Documentati | | Buel, Maritza, SUPERVISOR DRAPERY HANGING | Other (Referral for | | 2019 | on Only | | | Neurosurgery from | | | | | | [facility] | | | | | | Medicine 12/27/18) | +--------+ + + + + from Last 3 Months Social History + +-------+ +--------+------+ | Tobacco [...] Vaccine: Influenza | | | | | (Season Ended) | 9 | | | + + [...] +------+-------+ + | MEDICAID | [place] | [id number] | | | [address] | | | [place] | | | | [place] | | | [place] | | | | [phone] | | | REGIONAL FACILITIES MANAGER | | | | | + +--------+ [...] AVE | | | al/Fam | | 1969 | [phone] | [place] [address] | | | em[place] | | | [phone] | | + +--------+ +--------+ + +"
--- OUTSIDE RECORDS SUMMARY | ~2019-01-08 | XMS | Clinical Summary ---
Demographics + + + | Address | [address] | | | [place] [address] | + + + | Home Phone | | + + + | Preferred Language | Unknown | + + + | Marital Status | | + + + | Mandaen Affiliation | Unknown | + + + | Race | Unknown | + + + | Ethnic Group | Unknown | + + + Author + + + | Author | [facility] | + + + | Organization | [facility] | + + + | Address | Unknown | + + + | Phone | Unavailable | + + + Support + + +---------+ + | Name | Relationship | Address | Phone | + + +---------+ + | Contact,No | ECON | Unknown | | + + +---------+ + Care Team Providers + +------+ + | Care Family Nurse Name | Role | Phone | + [...] 12/27/ | Documentati | | Buel, Maritza, INCLUSION TEACHER | Other (Referral for | | 2019 [...] +------+-------+ + | MEDICAID | [place] | [id number] | | | [address] | | | N | | | | [place] | | | [place] | | | | [phone] | | | EXPLOSIVE ORDNANCE DISPOSAL MANAGER | | | | | + [...] | 1969 | [phone] | [place] [address] | | | [place] | | | [phone] | | + +--------+ +--------+ + +"
--- OUTSIDE RECORDS SUMMARY | ~2019-01-08 | XMS | Encounter Summary ---
Demographics + + + | Address | [address] | | | [place] [address] | + + + | Home Phone | | + + + | Preferred Language | Unknown | + + + | Marital Status | | + + + | Anabaptist Affiliation | Unknown | + + + | Race | Unknown | + + + | Ethnic Group | Unknown | + + + Author + + + | Author | [facility] | + + + | Organization | [facility] | + + + | Address | Unknown | + + + | Phone | Unavailable | + + + Support + + +---------+ + | Name | Relationship | Address | Phone | + + +---------+ + | Contact,No | ECON | Unknown | | + + +---------+ + Care Team Providers + +------+ + | Care Malted Milk Masher Name | Role | Phone | + +------+ + | Fay Kennedy | PCP | Unavailable | + +------+ + Encounter Details +--------+ + + + + | Date | Type | Department | Care Team | Description | +--------+ + + + + | 01/01/ | Documentati | [facility] | Koko Willis DO | | | 2019 | on Only | Neuroscience Center | [address] | | | | | [address] | [place], [place] | | | | | [place], [place] | [address] | | | | | [address] | | | | | | [phone] | | | +--------+ + + + [...]
--- OUTSIDE RECORDS SUMMARY | ~2019-01-08 | XMS | Encounter Summary ---
Demographics + + + | Address | [address] | | | [place] [address] | + + + | Home Phone | | + + + | Preferred Language | Unknown | + + + | Marital Status | | + + + | Zoroastrian Affiliation | Unknown | + + + | Race | Unknown | + + + | Ethnic Group | Unknown | + + + Author + + + | Author | [facility] | + + + | Organization | [facility] | + + + | Address | Unknown | + + + | Phone | Unavailable | + + + Support + + +---------+ + | Name | Relationship | Address | Phone | + + +---------+ + | Contact,No | ECON | Unknown | | + + +---------+ + Care Team Providers + +------+ + | Care Hand Wrapper Operator Name | Role | Phone | + +------+ + | Fay Kennedy | PCP | Unavailable | + +------+ + Encounter Details +--------+ + + + + | Date | Type | Department | Care Team | Description | +--------+ + + + + | 01/03/ | Telephone | [facility] | Cresencio Hall, | | | 2018 | | Pulmonology [address] | [address] | | | | | [address] | | | | | | [place] | | | | | | [address] | | | | | | [phone] | | | +--------+ + + + [...]
--- OUTSIDE RECORDS SUMMARY | ~2019-01-08 | XMS | Encounter Summary ---
Demographics + + + | Address | [address] | | | [place] [address] | + + + | Home Phone | | + + + | Preferred Language | Unknown | + + + | Marital Status | | + + + | Gnosticist Affiliation | Unknown | + + + | Race | Unknown | + + + | Ethnic Group | Unknown | + + + Author + + + | Author | [facility] | + + + | Organization | [facility] | + + + | Address | Unknown | + + + | Phone | Unavailable | + + + Support + + +---------+ + | Name | Relationship | Address | Phone | + + +---------+ + | Contact,No | ECON | Unknown | | + + +---------+ + Care Team Providers + +------+ + | Care Quality Control Assistant Name | Role | Phone | + +------+ + | Fay Kennedy | PCP | Unavailable | + +------+ + Reason for Visit +--------+ + | Reason | Comments | +--------+ + | Other | Referral for Neurosurgery from [facility] 12/27/18 | +--------+ + Encounter Details +--------+ [...] [address] | | | | [place], [place] | | Medicine 12/27/18) | | | | [address] | | | | | | [phone] | | | +--------+ + + + [...]
[~2019-01-08 17:36] MED LIST changes: +BRINTELLIX20 MG; +CYCLOBENZAPRINE5 MG PO; +TRAMADOL HCL50 MG PO
--- OUTSIDE RECORDS SUMMARY | 2019-01-08 17:38 | XMS ---
PreManage Notification: FABIO OCAMPO Security Press Operator Events No recent Security Events currently on file CRITERIA MET - Group Notification - [facility] - Has Care Guidelines - PDMP - [facility] - 2 Visits in 30 Days CARE PROVIDERS DANNIELLE BESS Physician Dough Scaler And Mixer Current PHONE: [phone] [facility] Provider Current PHONE: [phone] BEENA MONAHAN Primary Care [facility] PHONE: [phone] Tomer Gama Case or Staff Forester Current [facility] PHONE: [phone] Jerome has no Care Guidelines for this patient. Care History Substance Use/Overdose 10/31/2016 [facility] could benefit from a dual diagnosis evaluation for substance and mental health evaluation for treatment. Medical/Surgical 12/04/2018 [facility] - EOIPA CASE MANAGEMENT REFERRAL MADE- PATIENT EOCCO- CHRONIC PAIN CONDITIONS. 11/05/2018 [facility] - PATIENT CURRENTLY WORKS WITH [employer]- CURRENTLY BEING PRESCRIBED MEDICATIONS BY AJAY HARRIS E.D. VISIT COUNT (12 MO.) 8 [facility]. TOTAL 8 NOTE: Visits indicate total known visits. ED/UCC VISIT TRACKING (12 MO.) 01/08/2019 17:36 [facility] [place] TYPE: Emergency COMPLAINT: - NECK PAIN/NON INJURY 12/15/2018 13:31 [facility] [place] TYPE: Emergency COMPLAINT: - BACK AND NECK PAIN DIAGNOSES: - Nicotine dependence, unspecified, uncomplicated - Allergy status to other antibiotic agents status - Postprocedural hypothyroidism - Allergy status to narcotic agent status - Radiculopathy, cervical region - Other termite treater (current) drug therapy - Cervicalgia - Post-traumatic stress disorder, unspecified 12/03/2018 15:27 [facility] [place] TYPE: Emergency COMPLAINT: - BACK PAIN,BLUR VISION DIAGNOSES: - Other cervical disc degeneration, unspecified cervical region - Pain in right arm - Pain in left arm - Cervicalgia - Allergy status to narcotic agent status - Allergy status to penicillin - Post-traumatic stress disorder, unspecified - Other custodial (current) drug therapy 11/03/2018 11:38 [facility] [place] TYPE: Emergency COMPLAINT: - RASH,SOB DIAGNOSES: - Nicotine dependence, unspecified, uncomplicated - Cough - Allergy status to narcotic agent status - Post-traumatic stress disorder, unspecified - Allergy status to penicillin - Bronchitis, not specified as acute or chronic - Other termite treater (current) drug therapy 09/01/2018 13:22 [facility] [place] TYPE: Emergency COMPLAINT: - PELVIC PAIN/CRAMPS DIAGNOSES: - Post-traumatic stress disorder, unspecified - Other custodial (current) drug therapy - Allergy status to [...] unspecified, uncomplicated - Insomnia, unspecified - Other custodial (current) drug therapy 01/09/2018 14:53 [facility] [...] visits to display in this time frame [id number]
== END 2019-01-08 18:30 | disposition home or self-care (01) ==
LOC: ED 17:36
DX: M48.02 Spinal stenosis, cervical region (principal); G89.29 Other chronic pain; M54.2 Cervicalgia; F17.200 Nicotine dependence, unspecified, uncomplicated; Z90.89 Acquired absence of other organs; Z88.0 Allergy status to penicillin; Z88.5 Allergy status to narcotic agent; Z79.899 Other long term (current) drug therapy
CPT/HCPCS: 96372; 99283-25; J1885

== ENCOUNTER 2019-01-24 13:11 | Emergency (ER) | payer OTHER ==
[~2019-01-24] VITALS: Ht 165.1 cm; Wt 90.7 kg
[~2019-01-24 13:11] MED LIST changes: -LEVO-T150 MCG PO; +LEVO-T200 MCG PO
--- OUTSIDE RECORDS SUMMARY | 2019-01-24 13:14 | XMS ---
PreManage Notification: FABIO OCAMPO Security Sow Manager Events No recent Security Events currently on file CRITERIA MET - Group Notification - 6 ED Visits in 6 Months - [facility] - Has Care Guidelines - PDMP - [facility] - 2 Visits in 30 Days CARE PROVIDERS DANNIELLE BESS Sales Representative [employer] Current PHONE: [phone] [facility] Current PHONE: [phone] BEENA MONAHAN [facility] PHONE: [phone] Tomer Caldwell - Case or Internet Marketing Consultant Current [facility] PHONE: [phone] Guidelines Source: [facility] - Sheri Guidelines Date: 01/09/2019 Care Coordination: Mental health services are being provided by [address].\T\nbsp; Please contact [address] with mental health concerns.\T\nbsp; [facility]: \T\nbsp; Beena: [phone]. Care History Medical/Surgical 12/04/2018 [facility] - [place] CASE MANAGEMENT REFERRAL MADE- PATIENT EOCCO- CHRONIC PAIN CONDITIONS. 11/05/2018 [facility] - PATIENT CURRENTLY WORKS WITH [employer]- CURRENTLY BEING PRESCRIBED MEDICATIONS BY AJAY ONOFRE. Substance Use/Overdose 10/31/2016 [facility] Member could benefit from a dual diagnosis evaluation for substance and mental health evaluation for treatment. Maria Guadalupe VISIT COUNT (12 MO.) 7 [facility]. TOTAL 7 NOTE: Visits indicate total known visits. ED/UCC VISIT TRACKING (12 MO.) 01/24/2019 13:12 [facility] [place] TYPE: Emergency COMPLAINT: - NECK PAIN, LEFT ARM NUMBNESS 01/08/2019 17:36 [facility] [place] TYPE: Emergency COMPLAINT: - NECK PAIN/NON INJURY DIAGNOSES: - Nicotine dependence, unspecified, uncomplicated - Spinal stenosis, cervical region - Cervicalgia - Allergy status to narcotic agent status - Acquired absence of other organs - Allergy status to penicillin - Other oysterman (current) drug therapy - Other chronic pain 12/15/2018 13:31 [facility] [place] TYPE: Emergency COMPLAINT: - BACK AND NECK PAIN DIAGNOSES: - Nicotine dependence, unspecified, uncomplicated - Allergy status to other antibiotic agents status - Postprocedural hypothyroidism - Allergy status to narcotic agent status - Radiculopathy, cervical region - Other fdc (current) drug therapy - Cervicalgia - Post-traumatic stress disorder, unspecified 12/03/2018 15:27 [facility] [place] TYPE: Emergency COMPLAINT: - BACK PAIN,BLUR VISION DIAGNOSES: - Other cervical disc degeneration, unspecified cervical region - Pain in right arm - Pain in left arm - Cervicalgia - Allergy status to narcotic agent status - Allergy status to penicillin - Post-traumatic stress disorder, unspecified - Other oysterman (current) drug therapy 11/03/2018 11:38 [facility] [place] TYPE: Emergency COMPLAINT: - RASH,SOB DIAGNOSES: - Nicotine dependence, unspecified, uncomplicated - Cough - Allergy status to narcotic agent status - Post-traumatic stress disorder, unspecified - Allergy status to penicillin - Bronchitis, not specified as acute or chronic - Other fdc (current) drug therapy 09/01/2018 13:22 [facility] [place] TYPE: Emergency COMPLAINT: - PELVIC PAIN/CRAMPS DIAGNOSES: - Post-traumatic stress disorder, unspecified - Other fdc (current) drug therapy - Allergy status to [...] - Right upper quadrant pain - Other fdc (current) drug therapy - Nicotine dependence, unspecified, uncomplicated - Gastritis, unspecified, without bleeding INPATIENT VISIT TRACKING (12 MO.) No inpatient visits to display in this time frame [email or web address]
[2019-01-24] MEDS ORDERED: NEURONTIN600 MG PO (13:41)
[2019-01-24] MEDS ORDERED: ULTRAM50 MG PO (13:49)
[2019-01-24] MEDS ORDERED: MELOXICAM7.5 MG PO (13:49)
== END 2019-01-24 14:11 | disposition home or self-care (01) ==
LOC: ED 13:11
DX: M48.02 Spinal stenosis, cervical region (principal); F17.200 Nicotine dependence, unspecified, uncomplicated; E89.0 Postprocedural hypothyroidism; Z88.5 Allergy status to narcotic agent; Z88.0 Allergy status to penicillin; Z79.899 Other long term (current) drug therapy
CPT/HCPCS: 96372; 99283-25; J1885

== ENCOUNTER 2019-02-07 11:46 | Emergency (ER) | payer OTHER ==
[~2019-02-07] VITALS: Ht 165.1 cm; Wt 90.7 kg
[~2019-02-07 11:46] MED LIST changes: +MELOXICAM7.5 MG PO; +NEURONTIN600 MG PO; +ULTRAM50 MG PO
--- OUTSIDE RECORDS SUMMARY | 2019-02-07 11:48 | XMS ---
PreManage Notification: FABIO OCAMPO Security Paper Plate Machine Tender Events No recent Security Events currently on file CRITERIA MET - Group Notification - 6 ED Visits in 6 Months - [facility] - Has Care Guidelines - PDMP - [facility] - 2 Visits in 30 Days CARE PROVIDERS DANNIELLE BESS Paint Formulator Current PHONE: [phone] [facility] Current PHONE: [phone] BEENA MONAHAN Primary Care [facility] PHONE: [phone] Tomer Caldwell - Case or Media Assistant Current [facility] PHONE: [phone] Guidelines Source: [facility] - Sheri Guidelines Date: 01/09/2019 Care Coordination: Mental health services are being provided by [facility].\T\nbsp; Please contact [facility] with mental health concerns.\T\nbsp; [facility]: [phone]\T\nbsp; Beena: [phone]. Care History Substance Use/Overdose 10/31/2016 [facility] could benefit from a dual diagnosis evaluation for substance and mental health evaluation for treatment. Medical/Surgical 12/04/2018 [facility] - [place] CASE MANAGEMENT REFERRAL MADE- PATIENT EOCCO- CHRONIC PAIN CONDITIONS. 11/05/2018 [facility] - PATIENT CURRENTLY WORKS WITH [employer]- CURRENTLY BEING PRESCRIBED MEDICATIONS BY AJAY HARRIS E.D. VISIT COUNT (12 MO.) 8 [facility]. TOTAL 8 NOTE: Visits indicate total known visits. ED/UCC VISIT TRACKING (12 MO.) 02/07/2019 11:47 [facility] [place] TYPE: Emergency COMPLAINT: - POSSIBLE ALLERGIC REACTION 01/24/2019 13:12 [facility] [place] TYPE: Emergency COMPLAINT: - NECK PAIN, LEFT ARM NUMBNESS DIAGNOSES: - Allergy status to penicillin - Cervicalgia - Nicotine dependence, unspecified, uncomplicated - Spinal stenosis, cervical region - Allergy status to narcotic agent status - Other manager terminal (current) drug therapy - Postprocedural hypothyroidism 01/08/2019 17:36 [facility] [place] TYPE: Emergency COMPLAINT: - NECK PAIN/NON INJURY DIAGNOSES: - Nicotine dependence, unspecified, uncomplicated - Spinal stenosis, cervical region - Cervicalgia - Allergy status to narcotic agent status - Acquired absence of other organs - Allergy status to penicillin - Other manager terminal (current) drug therapy - Other chronic pain 12/15/2018 13:31 [facility] [place] TYPE: Emergency COMPLAINT: - BACK AND NECK PAIN DIAGNOSES: - Nicotine dependence, unspecified, uncomplicated - Allergy status to other antibiotic agents status - Postprocedural hypothyroidism - Allergy status to narcotic agent status - Radiculopathy, cervical region - Other long-term (current) drug therapy - Cervicalgia - Post-traumatic stress disorder, unspecified 12/03/2018 15:27 [facility] [place] TYPE: Emergency COMPLAINT: - BACK PAIN,BLUR VISION DIAGNOSES: - Other cervical disc degeneration, unspecified cervical region - Pain in right arm - Pain in left arm - Cervicalgia - Allergy status to narcotic agent status - Allergy status to penicillin - Post-traumatic stress disorder, unspecified - Other manager terminal (current) drug therapy 11/03/2018 11:38 [facility] [place] TYPE: Emergency COMPLAINT: - RASH,SOB DIAGNOSES: - Nicotine dependence, unspecified, uncomplicated - Cough - Allergy status to narcotic agent status - Post-traumatic stress disorder, unspecified - Allergy status to penicillin - Bronchitis, not specified as acute or chronic - Other long-term (current) drug therapy 09/01/2018 13:22 [facility] [place] TYPE: Emergency COMPLAINT: - PELVIC PAIN/CRAMPS DIAGNOSES: - Post-traumatic stress disorder, unspecified - Other manager terminal (current) drug therapy - Allergy status to [...] - Right upper quadrant pain - Other manager terminal (current) drug therapy - Nicotine dependence, unspecified, uncomplicated - Gastritis, unspecified, without bleeding INPATIENT VISIT TRACKING (12 MO.) No inpatient visits to display in this time frame [email or web address]
[2019-02-07] MEDS ORDERED: PREDNISONE20 MG PO (12:18)
== END 2019-02-07 12:25 | disposition home or self-care (01) ==
LOC: ED 11:46
DX: L30.9 Dermatitis, unspecified (principal); F17.200 Nicotine dependence, unspecified, uncomplicated; Z90.89 Acquired absence of other organs; Z88.0 Allergy status to penicillin; Z88.5 Allergy status to narcotic agent; Z79.899 Other long term (current) drug therapy
CPT/HCPCS: 99282

== ENCOUNTER 2019-02-17 12:43 | Emergency (ER) | payer OTHER ==
[~2019-02-17] VITALS: Ht 165.1 cm; Wt 90.7 kg
--- OUTSIDE RECORDS SUMMARY | 2019-02-17 12:46 | XMS ---
PreManage Notification: FABIO OCAMPO Security Distribution Supervisor Events No recent Security Events currently on file CRITERIA MET - Group Notification - 6 ED Visits in 6 Months - [facility] - Has Care Guidelines - PDMP - [facility] - 2 Visits in 30 Days CARE PROVIDERS DANNIELLE BESS Boxing Promoter Current PHONE: [phone] [employer] [facility] Current PHONE: [phone] BEENA MONAHAN Primary Care [facility] PHONE: [phone] Tomer Caldwell - Case or Veneer Supervisor Current [facility] PHONE: [phone] Guidelines Source: [employer] - Sheri Guidelines Date: 01/09/2019 Care Coordination: Mental health services are being provided by [employer].\T\nbsp; Please contact [employer] with mental health concerns.\T\nbsp; [facility]: \T\nbsp; Beena: [phone]. Care History Substance Use/Overdose 10/31/2016 [facility] could benefit from a dual diagnosis evaluation for substance and mental health evaluation for treatment. Medical/Surgical 12/04/2018 [facility] - [place] CASE MANAGEMENT REFERRAL MADE- PATIENT EOCCO- CHRONIC PAIN CONDITIONS. 11/05/2018 [facility] - PATIENT CURRENTLY WORKS WITH [employer]- CURRENTLY BEING PRESCRIBED MEDICATIONS BY AJAY HARRIS E.D. VISIT COUNT (12 MO.) 9 [facility]. TOTAL 9 NOTE: Visits indicate total known visits. ED/UCC VISIT TRACKING (12 MO.) 02/17/2019 12:43 [facility] [place] TYPE: Emergency COMPLAINT: - RASH 02/07/2019 11:47 [facility] [place] TYPE: Emergency COMPLAINT: - POSSIBLE ALLERGIC REACTION DIAGNOSES: - Allergy status to penicillin - Allergy status to narcotic agent status - Other aeronautical drafter (current) drug therapy - Acquired absence of other organs - Dermatitis, unspecified - Nicotine dependence, unspecified, uncomplicated - Rash and other nonspecific skin eruption 01/24/2019 13:12 [facility] [place] TYPE: Emergency COMPLAINT: - NECK PAIN, LEFT ARM NUMBNESS DIAGNOSES: - Allergy status to penicillin - Cervicalgia - Nicotine dependence, unspecified, uncomplicated - Spinal stenosis, cervical region - Allergy status to narcotic agent status - Other intermediate (current) drug therapy - Postprocedural hypothyroidism 01/08/2019 17:36 [facility] [place] TYPE: Emergency COMPLAINT: - NECK PAIN/NON INJURY DIAGNOSES: - Nicotine dependence, unspecified, uncomplicated - Spinal stenosis, cervical region - Cervicalgia - Allergy status to narcotic agent status - Acquired absence of other organs - Allergy status to penicillin - Other aeronautical drafter (current) drug therapy - Other chronic pain 12/15/2018 13:31 [facility] [place] TYPE: Emergency COMPLAINT: - BACK AND NECK PAIN DIAGNOSES: - Nicotine dependence, unspecified, uncomplicated - Allergy status to other antibiotic agents status - Postprocedural hypothyroidism - Allergy status to narcotic agent status - Radiculopathy, cervical region - Other intermediate (current) drug therapy - Cervicalgia - Post-traumatic stress disorder, unspecified 12/03/2018 15:27 [facility] [place] TYPE: Emergency COMPLAINT: - BACK PAIN,BLUR VISION DIAGNOSES: - Other cervical disc degeneration, unspecified cervical region - Pain in right arm - Pain in left arm - Cervicalgia - Allergy status to narcotic agent status - Allergy status to penicillin - Post-traumatic stress disorder, unspecified - Other aeronautical drafter (current) drug therapy 11/03/2018 11:38 [facility] [place] TYPE: Emergency COMPLAINT: - RASH,SOB DIAGNOSES: - Nicotine dependence, unspecified, uncomplicated - Cough - Allergy status to narcotic agent status - Post-traumatic stress disorder, unspecified - Allergy status to penicillin - Bronchitis, not specified as acute or chronic - Other intermediate (current) drug therapy 09/01/2018 13:22 [facility] [place] TYPE: Emergency COMPLAINT: - PELVIC PAIN/CRAMPS DIAGNOSES: - Post-traumatic stress disorder, unspecified - Other aeronautical drafter (current) drug therapy - Allergy status to [...] - Right upper quadrant pain - Other intermediate (current) drug therapy - Nicotine dependence, unspecified, uncomplicated - Gastritis, unspecified, without bleeding INPATIENT VISIT TRACKING (12 MO.) No inpatient visits to display in this time frame [id number]
[2019-02-17] MEDS ORDERED: PREDNISONE20 MG PO (16:39)
[2019-02-17] MEDS ORDERED: ZOFRAN4 MG PO (16:39)
[2019-02-17] MEDS ORDERED: FLONASE ALLERG9.9 ML NAS (16:56)
[2019-02-17] MEDS ORDERED: DOXYCYCLINE HY100 MG PO (16:56)
== END 2019-02-17 17:13 | disposition home or self-care (01) ==
LOC: ED 12:43
DX: G43.909 Migraine, unspecified, not intractable, without status migrainosus (principal); R19.7 Diarrhea, unspecified; R21 Rash and other nonspecific skin eruption; J32.9 Chronic sinusitis, unspecified; F17.200 Nicotine dependence, unspecified, uncomplicated; Z88.0 Allergy status to penicillin; Z88.5 Allergy status to narcotic agent; Z79.899 Other long term (current) drug therapy
CPT/HCPCS: 70450; 80053; 81001; 83605; 83735; 84439; 84443; 84703; 85025; 85651; 86140; 99284-25; 99406

== ENCOUNTER 2019-07-07 12:41 | Emergency (ER) | payer MEDICAID ==
[~2019-07-07] VITALS: Ht 165.1 cm; Wt 90.7 kg
--- OUTSIDE RECORDS SUMMARY | ~2019-07-07 | XMS | Clinical Summary ---
Demographics + + + | Address | [address] | | | [place] [address] | + + + | Home Phone | | + + + | Preferred Language | Unknown | + + + | Marital Status | | + + + | Uatsdin Affiliation | Unknown | + + + | Race | Unknown | + + + | Ethnic Group | Unknown | + + + Author + + + | Author | [facility] (Historical as of | | | 04-06-19) | + + + | Organization | [facility] (Historical as of | | | 04-06-19) [...] Team Providers + +------+ + | Care Teacher Of The Hearing Impaired Name | Role | Phone | + [...] +------+-------+ + | MEDICAID | [place] | [id number] | | | [address] | | | N | | | | [place] | | | [place] | | | | [phone] | | | TRIAL PARALEGAL | | | | | + +--------+ [...] | 1970 | [phone] | [place] [address] | | | emily | | | [phone] | | + +--------+ +--------+ + +"
--- OUTSIDE RECORDS SUMMARY | ~2019-07-07 | XMS | Clinical Summary ---
Demographics + + + | Address | [address] | | | [place] [address] | + + + | Home Phone | | + + + | Preferred Language | Unknown | + + + | Marital Status | | + + + | Synagogue Affiliation | Unknown | + + + | Race | Unknown | + + + | Ethnic Group | Unknown | + + + Author + + + | Author | [facility] (Historical as of | | | 04-06-19) | + + + | Organization | [facility] (Historical as of | | | 04-06-19) [...] Team Providers + +------+ + | Care Hospice Social Worker Name | Role | Phone | + [...] +------+-------+ + | MEDICAID | [place] | [id number] | | | [address] | | | N | | | | [place] | | | [place] | | | | [phone] | | | EQUIPMENT RECORDS SUPERVISOR | | | | | + +--------+ [...] | 1970 | [phone] | [place] [address] | | | emily | | | [phone] | | + +--------+ +--------+ + +"
[~2019-07-07 12:41] MED LIST changes: +DOXYCYCLINE HY100 MG PO; +FLONASE ALLERG9.9 ML NAS; +ROBAXIN-750750 MG PO; +ZOFRAN4 MG PO
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
== END 2019-07-07 13:23 | disposition home or self-care (01) ==
LOC: ED 12:41
DX: J02.9 Acute pharyngitis, unspecified (principal); R05 Cough

== ENCOUNTER 2019-07-09 06:25 | Emergency (ER) | payer OTHER ==
[~2019-07-09] VITALS: Ht 165.1 cm; Wt 90.7 kg
--- OUTSIDE RECORDS SUMMARY | ~2019-07-09 | XMS | Clinical Summary ---
Demographics + + + | Address | [address] | | | [place] [address] | + + + | Home Phone | | + + + | Preferred Language | Unknown | + + + | Marital Status | | + + + | Christian Affiliation | Unknown | + + + | Race | Unknown | + + + | Ethnic Group | Unknown | + + + Author + + + | Author | [facility] (Historical as of | | | 04-06-19) | + + + | Organization | [facility] [facility] (Historical as of | | | 04-06-19) [...] Team Providers + +------+ + | Care Professor Of Psychiatry Name | Role | Phone | + [...] +------+-------+ + | MEDICAID | [place] | [id number] | | | [address] | | | N | | | | [place] | | | [place] | | | | [address] | | | TRIAGE NURSE | | | | | + +--------+ [...] | 1970 | [phone] | [place] [address] | | | emily | | | [phone] | | + +--------+ +--------+ + +"
--- OUTSIDE RECORDS SUMMARY | ~2019-07-09 | XMS | Clinical Summary ---
Demographics + + + | Address | [address] | | | [place] [address] | + + + | Home Phone | | + + + | Preferred Language | Unknown | + + + | Marital Status | | + + + | Christianity Affiliation | Unknown | + + + | Race | Unknown | + + + | Ethnic Group | Unknown | + + + Author + + + | Author | [facility] (Historical as of | | | 04-06-19) | + + + | Organization | [facility] (Historical as of | | | 04-06-19) [...] Team Providers + +------+ + | Care Newspaper Vendor Name | Role | Phone | + [...] +------+-------+ + | MEDICAID | [place] | [id number] | | | [address] | | | N | | | | [place] | | | [place] | | | | [address] | | | DRINKING WATER TECHNICIAN | | | | | + [...] | 1970 | [phone] | [place] [address] | | | emily | | | [address]28 | | + +--------+ +--------+ + +"
--- OUTSIDE RECORDS SUMMARY | 2019-07-09 06:28 | XMS ---
PreManage Notification: FABIO OCAMPO Security [employer] Sql Developer Events 1 event(s) in the past 18 months Most recent security events: Elopement at [facility] 03/26/2019 16:14 Details: PATIENT LWOB. CRITERIA MET - Group Notification - 6 ED Visits in 6 Months - [facility] - Has Care Guidelines - PDMP - [facility] - 2 Visits in 30 Days CARE PROVIDERS [facility]: Critical 05/20/2019-[facility] PHONE: [phone] DANNIELLE BESS Current PHONE: [phone] Shreya Betancourt Reception Manager: Clinical 06/26/2019-Current PHONE: [phone] DANNIELLE [facility] 06/07/2019-Current PHONE: [phone] Radha Riley Winery Worker/Ballistics Teacher [facility] PHONE: [phone] Radha Riley Winery Worker/Ballistics Teacher [facility] PHONE: Unknown Shreya Betancourt [facility] 06/26/2019-Current PHONE: [phone] EVELYNE SPICER Primary Care 06/07/2019-Current PHONE: Unknown [facility] Primary Care 05/20/2019-[facility] PHONE: [phone] [facility] Provider Current PHONE: [phone] [facility] PHONE: [phone] Tomer Caldwell - Case or Mandolin Repairer [facility] PHONE: [phone] Guidelines Source: [employer] Natan Wade Guidelines Date: 01/09/2019 Care Coordination: Mental health services are being provided by [employer].\T\nbsp; Please contact [employer] with mental health concerns.\T\nbsp; Trino/Mukul Jones: Calin1- [phone]\T\nbsp; Ainsley: [phone]. Care History Substance Use/Overdose 10/31/2016 [facility] Member could benefit from a dual diagnosis evaluation for substance and mental health evaluation for treatment. Medical/Surgical 07/08/2019 [facility] - [facility] CALLED PATIENT-CONTACT NUMBER- NO ANSWER-NO VOICEMAIL SET UP. - PATIENT DOES NOT HAVE DIGITAL TECHNICIAN FOR THIS AREA FOR INSURANCE. - PLEASE PROVIDE [facility] CONTACT NUMBER [phone] TO PATIENT FOR FOLLOW UP CONTACT. 03/27/2019 [facility] - PATIENT HAS A PCP APT FOR ER FOLLOW UP ON 04/01/19. CONFIRMED WITH PROVIDER OFFICE. 12/04/2018 [facility] - [facility] CASE MANAGEMENT REFERRAL MADE- PATIENT [facility]- CHRONIC PAIN CONDITIONS. E.D. VISIT COUNT (12 MO.) 1 [facility] 12 [facility]. TOTAL 13 NOTE: Visits indicate total known visits. ED/UCC VISIT TRACKING (12 MO.) 07/09/2019 06:25 [facility] [place] TYPE: Emergency COMPLAINT: - ABD PAIN, VOMITING 07/07/2019 12:43 [facility] [place] TYPE: Emergency COMPLAINT: - COUGH, BODY ACHES- MSE TO CLINIC 06/26/2019 08:22 [facility] [place] TYPE: Emergency COMPLAINT: - Anxiety disorder, unspecified - Irritability and anger DIAGNOSES: 1. Suicidal ideations 2. Other psychoactive substance abuse, uncomplicated 3. Acute upper respiratory infection, unspecified 4. Homelessness 03/27/2019 12:06 [facility] [place] TYPE: Emergency COMPLAINT: - NECK PAIN DIAGNOSES: - Other terminal computer operator (current) drug therapy - Cervicalgia - Radiculopathy, cervical region - Allergy status to narcotic agent status - Post-traumatic stress disorder, unspecified - Allergy status to penicillin - Nicotine dependence, unspecified, uncomplicated 03/26/2019 16:14 [facility] [place] TYPE: Emergency COMPLAINT: - NECK PAIN, NO INJURY DIAGNOSES: - Cervicalgia - Proc/trtmt not crd out d/t pt lv bef seen by [facility] 02/17/2019 12:43 [facility] [place] TYPE: Emergency COMPLAINT: - RASH DIAGNOSES: - Rash and other nonspecific skin eruption - Allergy status to penicillin - Allergy status to narcotic agent status - Other terminal computer operator (current) drug therapy - Chronic sinusitis, unspecified - Nicotine dependence, unspecified, uncomplicated - Diarrhea, unspecified - Migraine, unsp, not intractable, without status migrainosus 02/07/2019 11:47 [facility] [place] TYPE: Emergency COMPLAINT: - POSSIBLE ALLERGIC REACTION DIAGNOSES: - Allergy status to penicillin - Allergy status to narcotic agent status - Other jail (current) drug therapy - Acquired absence of [...] status to narcotic agent status - Other jail (current) drug therapy - Postprocedural hypothyroidism 01/08/2019 17:36 [facility] [place] TYPE: Emergency COMPLAINT: - NECK PAIN/NON INJURY DIAGNOSES: - Nicotine dependence, unspecified, uncomplicated - Spinal stenosis, cervical region - Cervicalgia - Allergy status to narcotic agent status - Acquired absence of other organs - Allergy status to penicillin - Other terminal computer operator (current) drug therapy - Other chronic pain 12/15/2018 13:31 [facility] [place] TYPE: Emergency COMPLAINT: - BACK AND NECK PAIN DIAGNOSES: - Nicotine dependence, unspecified, uncomplicated - Allergy status to other antibiotic agents status - Postprocedural hypothyroidism - Allergy status to narcotic agent status - Radiculopathy, cervical region - Other terminal computer operator (current) drug therapy - Cervicalgia - Post-traumatic stress disorder, unspecified 12/03/2018 15:27 [facility] [place] TYPE: Emergency COMPLAINT: - BACK PAIN,BLUR VISION DIAGNOSES: - Other cervical disc degeneration, unsp cervical region - Pain in right arm - Pain in left arm - Cervicalgia - Allergy status to narcotic agent status - Allergy status to penicillin - Post-traumatic stress disorder, unspecified - Other terminal computer operator (current) drug therapy 11/03/2018 11:38 [facility] [place] TYPE: Emergency COMPLAINT: - RASH,SOB DIAGNOSES: - Nicotine dependence, unspecified, uncomplicated - Cough - Allergy status to narcotic agent status - Post-traumatic stress disorder, unspecified - Allergy status to penicillin - Bronchitis, not specified as acute or chronic - Other jail (current) drug therapy 09/01/2018 13:22 [facility] [place] TYPE: Emergency COMPLAINT: - PELVIC PAIN/CRAMPS DIAGNOSES: - Post-traumatic stress disorder, unspecified - Other jail (current) drug therapy - Allergy status to narcotic agent status - Unspecified ovarian cyst, right side - Nicotine dependence, unspecified, uncomplicated - Pelvic and perineal pain - Allergy status to penicillin - Insomnia, unspecified - Allergy status to analgesic agent status INPATIENT VISIT TRACKING (12 MO.) 06/26/2019 20:10 [facility] [place] TYPE: Psychiatric Services DIAGNOSES: 0. Major [...] of self-harm 2. Spinal stenosis, site unspecified [email or web address]
[2019-07-09] MEDS ORDERED: FLUTICASONE PRO16 GM NAS (06:40)
[2019-07-09] MEDS ORDERED: BENZONATATE100 MG PO (06:40)
[2019-07-09] MEDS ORDERED: TRAMADOL HCL50 MG PO (08:39)
--- NOTE | 2019-07-09 19:04 | EKG ---
[facility] [address] [place], [place] [address] Signed Normal sinus rhythm Normal ECG When compared with ECG of 18-JUL-2017 12:17, Nonspecific T wave abnormality, improved in Inferior leads Confirmed by DORIAN BLAS DO ([id number]) on 07/09/2019 7:04:40 PM Electronically Signed By: DORIAN BLAS DO 07/09/19 1904 PATIENT NAME: TERRENCEFABIO Electrocardiogram DATE OF : 72 PHYSICIAN: DORIAN BLAS DO REPORT #: [id number] REPORT IS CONFIDENTIAL AND NOT TO BE RELEASED WITHOUT AUTHORIZATION
== END 2019-07-09 08:50 | disposition home or self-care (01) ==
LOC: ED 06:25
DX: B34.9 Viral infection, unspecified (principal); F43.10 Post-traumatic stress disorder, unspecified; F17.200 Nicotine dependence, unspecified, uncomplicated; Z88.5 Allergy status to narcotic agent; Z88.0 Allergy status to penicillin; Z79.899 Other long term (current) drug therapy
CPT/HCPCS: 71046; 80053; 81001; 83735; 84484; 85025; 85379; 93005; 93010; 96374; 99285-25; 99406; J1885; J7030

== ENCOUNTER 2019-07-19 06:41 | Emergency (ER) | payer OTHER ==
[~2019-07-19] VITALS: Ht 165.1 cm; Wt 90.7 kg
--- OUTSIDE RECORDS SUMMARY | ~2019-07-19 | XMS | Clinical Summary ---
Demographics + + + | Address | [address] | | | [place] [address] | + + + | Home Phone | | + + + | Preferred Language | Unknown | + + + | Marital Status | | + + + | Yazdanism Affiliation | Unknown | + + + | Race | Unknown | + + + | Ethnic Group | Unknown | + + + Author + + + | Author | [facility] (Historical as of | | | 04-06-19) | + + + | Organization | [facility] (Historical as of | | | 04-06-19) | + + + | Address | Unknown | + + + | Phone | Unavailable | + + + Support + + +---------+ + | Name | Relationship | Address | Phone | + + +---------+ + | Contact,No | ECON | Unknown | | + + +---------+ + Care Team Providers + +------+ + | Care Spotter Driver Name | Role | Phone | + +------+ + | Fay Kennedy | PP | Unavailable | + +------+ + Allergies Not on File Current Medications Not on file Active Problems Not on file Social History + +-------+ +--------+------+ | Tobacco Use | Types | Packs/Day | Years | Date | | | | | Used | | + +-------+ +--------+------+ | Never Assessed | | | | | + +-------+ +--------+------+ + + + | Sex Assigned at | Date Recorded | | | | + + + | Not on file | | + + + Plan of Treatment + + + + + | Health Maintenance | Due Date | Last Done | Comments | + + + + + | Vaccine: | | | | | Dtap/Tdap/Td (1 - | 0 | | | | Tdap) | | | | + + + + + | Cervical Cancer | | | | | Screening (Pap) | 1 | | | + + + + + | Vaccine: Influenza | | | | | (#1) | 9 | | | + + + + + Results Not on filefrom Last 3 Months Insurance + +--------+ +------+-------+ + | Payer | Benefi | Subscriber | Type | Phone | Address | | | t Plan | ID | | | | | | / | | | | | | | Group | | | | | + +--------+ +------+-------+ + | MEDICAID | [place] | [id number] | | | [address] | | | N | | | | [place] | | | [place] | | | | [address] | | | PEOPLESOFT FUNCTIONAL ANALYST | | | | | + +--------+ +------+-------+ + + +--------+ +--------+ + + | Guarantor Name | Accoun | Relation to | Date | Phone | Billing Address | | | t Type | Patient | of | | | | | | | | | | + +--------+ +--------+ + + | SUSY OCAMPO | Person | Self [birth year] | Home: | [address] | | | al/Fam | | 1970 | [phone] | [place] [address] | | | emily | | | [phone] | | + +--------+ +--------+ + +"
--- OUTSIDE RECORDS SUMMARY | ~2019-07-19 | XMS | Clinical Summary ---
Demographics + + + | Address | [address] | | | [place] [address] | + + + | Home Phone [...] + | Author | [facility] (Historical as of | | | 04-06-19) | + + + | Organization | [facility] (Historical as of | | | 04-06-19) [...] Team Providers + +------+ + | Care Tilt Wall Supervisor Name | Role | Phone | + [...] +------+-------+ + | MEDICAID | [place] | [id number] | | | [address] | | | N | | | | [place] | | | [place] | | | | [phone] | | | 911 TELECOMMUNICATOR | | | | | + +--------+ [...] | 1970 | [phone] | [place] [address] | | | emily | | | [phone] | | + +--------+ +--------+ + +"
[~2019-07-19 06:41] MED LIST changes: +BENZONATATE100 MG PO; +FLUTICASONE PRO16 GM NAS
--- OUTSIDE RECORDS SUMMARY | 2019-07-19 06:42 | XMS ---
PreManage Notification: FABIO OCAMPO Security Personal Attendant Events 1 event(s) in the past 18 months Most recent security events: Elopement at [facility] 03/26/2019 16:14 Details: PATIENT LWOB. CRITERIA MET - Group Notification - 6 ED Visits in 6 Months - [facility] - Has Care Guidelines - PDMP - [facility] - 2 Visits in 30 Days CARE PROVIDERS [facility]: Critical 05/20/2019-[facility] PHONE: [phone] DANNIELLE BESS Physician Manager Nursing Home Current PHONE: [phone] DANNIELLE [facility] 06/07/2019-Current PHONE: [phone] Radha Riley Horse Rider/Friction Welding Machine Operator [facility] PHONE: Unknown Radha Riley Horse Rider/Friction Welding Machine Operator [facility] PHONE: [phone] Shreya Kinney Demand Generator Manager: Clinical 06/26/2019-Current PHONE: [phone] Natan Barnett [facility] 06/26/2019-Current PHONE: [phone] EVELYNE SPICER [facility] 06/07/2019-Current PHONE: Unknown [facility] Primary Care 05/20/2019-[facility] PHONE: [phone] [facility] Provider Current PHONE: [phone] [facility] PHONE: [phone] Tomer Caldwell - Case or Vehicle Technician [facility] PHONE: [phone] Guidelines Source: [facility] Natan Wade Guidelines Date: 01/09/2019 Care Coordination: Mental health services are being provided by [facility].\T\nbsp; Please contact [facility] with mental health concerns.\T\nbsp; Trino/Mukultray [place]: [phone]\T\nbsp; [place]: [phone]. Care History Medical/Surgical 07/11/2019 [facility] - PATIENT DOES NOT HAVE A PCP- CHW CALLED PATIENT AND LEFT MESSAGES - PATIENT HAS NOT BEEN SEEN BY [employer] SINCE 08/2018. CHW CONTACTED [facility] THEY WILL REACH OUT TO PATIENT TO SEE IF PATIENT WOULD BE INTERESTED IN SERVICES. - IF PATIENT IS SEEN IN ED-PLEASE REFER PATIENT TO A PRIMARY CARE PHYSICIAN FOR CHRONIC HEALTH CONDITIONS. - NO PCP LETTER SENT TO PATIENT. 07/08/2019 [facility] - CHW CALLED PATIENT-CONTACT NUMBER- NO ANSWER-NO VOICEMAIL SET UP. - PATIENT DOES NOT HAVE APPLICATIONS DEVELOPMENT CONSULTANT FOR THIS AREA FOR INSURANCE. - PLEASE PROVIDE CHW CONTACT NUMBER [phone] TO PATIENT FOR FOLLOW UP CONTACT. 03/27/2019 [facility] - PATIENT HAS A PCP APT FOR ER FOLLOW UP ON 04/01/19. CONFIRMED WITH PROVIDER OFFICE. Substance Use/Overdose 10/31/2016 [facility] could benefit from a dual diagnosis evaluation for substance and mental health evaluation for treatment. E.D. VISIT COUNT (12 MO[address] 1 [facility] 13 [facility]. TOTAL 14 NOTE: Visits indicate total known visits. ED/UCC VISIT TRACKING (12 MO.) 07/19/2019 06:41 [facility] [place] TYPE: Emergency COMPLAINT: - COUGHING UP BLOOD 07/09/2019 06:25 [facility] [place] TYPE: Emergency COMPLAINT: - ABD PAIN, VOMITING DIAGNOSES: - Allergy status to penicillin - Post-traumatic stress disorder, unspecified - Viral infection, unspecified - Nicotine dependence, unspecified, uncomplicated - Other residential (current) drug therapy - Allergy status to narcotic agent status 07/07/2019 12:43 [facility] [place] TYPE: Emergency COMPLAINT: - COUGH, BODY ACHES- MSE TO CLINIC DIAGNOSES: - Acute pharyngitis, unspecified - Cough 06/26/2019 08:22 [facility] [place] TYPE: Emergency COMPLAINT: - Anxiety disorder, unspecified - Irritability and anger DIAGNOSES: 1. Suicidal ideations 2. Other psychoactive substance abuse, uncomplicated 3. Acute upper respiratory infection, unspecified 4. Homelessness 03/27/2019 12:06 [facility] [place] TYPE: Emergency COMPLAINT: - NECK PAIN DIAGNOSES: - Other intermediate accountant (current) drug therapy - Cervicalgia - Radiculopathy, cervical region - Allergy status to narcotic agent status - Post-traumatic stress disorder, unspecified - Allergy status to penicillin - Nicotine dependence, unspecified, uncomplicated 03/26/2019 16:14 [facility] [place] TYPE: Emergency COMPLAINT: - NECK PAIN, NO INJURY DIAGNOSES: - Cervicalgia - Proc/trtmt not crd out d/t pt lv bef seen by [facility] 02/17/2019 12:43 [facility] [place] TYPE: Emergency COMPLAINT: - RASH DIAGNOSES: - Rash and other nonspecific skin eruption - Allergy status to penicillin - Allergy status to narcotic agent status - Other residential (current) drug therapy - Chronic sinusitis, unspecified - Nicotine dependence, unspecified, uncomplicated - Diarrhea, unspecified - Migraine, unsp, not intractable, without status migrainosus 02/07/2019 11:47 [facility] [place] TYPE: Emergency COMPLAINT: - POSSIBLE ALLERGIC REACTION DIAGNOSES: - Allergy status to penicillin - Allergy status to narcotic agent status - Other residential (current) drug therapy - Acquired absence of [...] status to narcotic agent status - Other residential (current) drug therapy - Postprocedural hypothyroidism 01/08/2019 17:36 [facility] [place] [facility] [place] TYPE: Emergency COMPLAINT: - NECK PAIN/NON INJURY DIAGNOSES: - Nicotine dependence, unspecified, uncomplicated - Spinal stenosis, cervical region - Cervicalgia - Allergy status to narcotic agent status - Acquired absence of other organs - Allergy status to penicillin - Other intermediate accountant (current) drug therapy - Other chronic pain 12[facility]15/2018 13:31 [facility] [place] [facility] COMPLAINT: - BACK AND NECK PAIN DIAGNOSES: - Nicotine dependence, unspecified, uncomplicated - Allergy status to other antibiotic agents status - Postprocedural hypothyroidism - Allergy status to narcotic agent status - Radiculopathy, cervical region - Other intermediate accountant (current) drug therapy - Cervicalgia - Post-traumatic stress disorder, unspecified 12/03/2018 15:27 [facility] [place] [facility] COMPLAINT: - BACK PAIN,BLUR VISION DIAGNOSES: - Other cervical disc degeneration, unsp cervical region - Pain in right arm - Pain in left arm - Cervicalgia - Allergy status to narcotic agent status - Allergy status to penicillin - Post-traumatic stress disorder, unspecified - Other residential (current) drug therapy 11/03/2018 11:38 [facility] [place] TYPE: Emergency COMPLAINT: - RASH,SOB DIAGNOSES: - Nicotine dependence, unspecified, uncomplicated - Cough - Allergy status to narcotic agent status - Post-traumatic stress disorder, unspecified - Allergy status to penicillin - Bronchitis, not specified as acute or chronic - Other intermediate accountant (current) drug therapy 09/01/2018 13:22 [facility] [place] TYPE: Emergency COMPLAINT: - PELVIC PAIN/CRAMPS DIAGNOSES: - Post-traumatic stress disorder, unspecified - Other residential (current) drug therapy - Allergy status to narcotic agent status - Unspecified ovarian cyst, right side - Nicotine dependence, unspecified, uncomplicated - Pelvic and perineal pain - Allergy status to penicillin - Insomnia, unspecified - Allergy status to analgesic agent status INPATIENT VISIT TRACKING (12 MO.) 06/26/2019 20:10 [facility] [place] [facility] DIAGNOSES: 0. Major [...] of self-harm 2. Spinal stenosis, site unspecified [email or web address]
[2019-07-19] MEDS ORDERED: SUBOXONE 12 MG1 EACH PO (07:04)
[2019-07-19] MEDS ORDERED: ZITHROMAX250 MG PO (07:19)
== END 2019-07-19 07:38 | disposition home or self-care (01) ==
LOC: ED 06:41
DX: J20.9 Acute bronchitis, unspecified (principal); G47.00 Insomnia, unspecified; F43.10 Post-traumatic stress disorder, unspecified; F17.200 Nicotine dependence, unspecified, uncomplicated; Z88.0 Allergy status to penicillin; Z88.5 Allergy status to narcotic agent; Z79.899 Other long term (current) drug therapy
CPT/HCPCS: 99283

== ENCOUNTER 2019-08-25 11:58 | Emergency (ER) | payer OTHER ==
[~2019-08-25] VITALS: Ht 162.6 cm; Wt 81.6 kg
--- OUTSIDE RECORDS SUMMARY | ~2019-08-25 | XMS | Clinical Summary ---
Demographics + + + | Address | [address] | | | [place] [address] | + + + | Home Phone | | + + + | Preferred Language | Unknown | + + + | Marital Status | | + + + | Voodoo Affiliation | Unknown | + + + | Race | Unknown | + + + | Ethnic Group | Unknown | + + + Author + + + | Author | [facility] (Historical as of | | | 04-06-19) | + + + | Organization | [facility] (Historical as of | | | 04-06-19) [...] Team Providers + +------+ + | Care Mailmaster Name | Role | Phone | + [...] +------+-------+ + | MEDICAID | [place] | [id number] | | | [address] | | | N | | | | [place] | | | [place] | | | | [phone] | | | MULE RIDER | | | | | + +--------+ +------+-------+ + + +--------+ +--------+ + + | Guarantor Name | Accoun | Relation to | Date | Phone | Billing Address | | | t Type | Patient | of | | | | | | | | | | + +--------+ +--------+ + + | SUSY OCAPMO | Person | Self | [birth year] | Home: | [address] | | | al/Fam | | 1970 | [phone] | [place] [address] | | | emily | | | [phone] | | + +--------+ +--------+ + +"
--- OUTSIDE RECORDS SUMMARY | ~2019-08-25 | XMS | Clinical Summary ---
Demographics + + + | Address | [address] | | | [place] [address] | + + + | Home Phone | | + + + | Preferred Language | Unknown | + + + | Marital Status | | + + + | Sikhism Affiliation | Unknown | + + + | Race | Unknown | + + + | Ethnic Group | Unknown | + + + Author + + + | Author | [facility] [employer] (Historical as of | | | 04-06-19) | + + + | Organization | [facility] [facility] (Historical as of | | | 04-06-19) [...] Team Providers + +------+ + | Care Security Support Analyst Name | Role | Phone | + [...] +------+-------+ + | MEDICAID | [place] | [id number] | | | [address] | | | N | | | | [place] | | | [place] | | | | [phone] | | | BOAT OUTFITTING SUPERVISOR | | | | | + [...] | 1970 | [phone] | [place] [address] | | | emily | | | [phone] | | + +--------+ +--------+ + +"
[~2019-08-25 11:58] MED LIST changes: +SUBOXONE 12 MG1 EACH PO
--- OUTSIDE RECORDS SUMMARY | 2019-08-25 12:00 | XMS ---
PreManage Notification: FABIO OCAMPO Security Blasting Entryman Events 1 event(s) in the past 18 months Most recent security events: Elopement at [facility] 03/26/2019 16:14 Details: PATIENT LWOB. CRITERIA MET - Group Notification - 6 ED Visits in 6 Months - [facility] - Has Care Guidelines - PDMP CARE PROVIDERS [facility]: Critical 05/20/2019-[facility] PHONE: [phone] DANNIELLE BESS Physician Regeneration Operator Current PHONE: [phone] DANNIELLE [facility] 06/07/2019-Current PHONE: [phone] Radha Riley Dairy Equipment Mechanic/Research Physician [facility] PHONE: [phone] Radha Riley Dairy Equipment Mechanic/Research Physician [facility] PHONE: Unknown Shreya Kinney Program Schedule Clerk: Clinical 06/26/2019-Current PHONE: [phone] Natan Barnett [facility] 06/26/2019-Current PHONE: [phone] EVELYNE SPICER [facility] 06/07/2019-Current PHONE: Unknown [facility] Primary Care 05/20/2019-[facility] PHONE: [phone] [facility] [place] [facility] Provider Current PHONE: [phone] [facility] PHONE: [phone] Tomer Caldwell - Case or Rotary Engraver [facility] PHONE: [phone] Guidelines Source: Arina Wade Guidelines Date: 01/09/2019 Care Coordination: Mental health services are being provided by [facility].\T\nbsp; [facility] with [facility] health concerns.\T\nbsp; Trino[facility]ukul [facility]: [phone]\T\[facility]; [place]: [phone]. Care History Medical/Surgical 07/19/2019 [facility] - EOIPA REFERRAL MADE-PATIENT HAS OPEN MEDICAID CARD- CURRENTLY [facility] AT [facility]. - CHW SPOKE WITH PATIENT-DISCUSSED THE NEED FOR PCP FOLLOW UP AND THE NEED FOR A PRIMARY IN THE AREA. - PATIENT WOULD LIKE TO ESTABLISH CARE WITH A PROVIDER IN THE AREA-EOIPA REFERRAL MADE. - PATIENT HAS A FOLLOW UP APT WITH PCP DANNIELLE BESS IN [place] ON 07/23/19. 07/11/2019 [facility] - PATIENT DOES NOT HAVE A PCP- CHW CALLED PATIENT AND LEFT MESSAGES - PATIENT HAS NOT BEEN SEEN BY [facility] SINCE 08/2018. CHW CONTACTED [facility] [place] THEY WILL REACH OUT TO PATIENT TO SEE IF PATIENT WOULD BE INTERESTED IN SERVICES. - IF PATIENT IS SEEN IN ED-PLEASE REFER PATIENT TO A PRIMARY CARE PHYSICIAN FOR CHRONIC HEALTH CONDITIONS. - NO PCP LETTER SENT TO PATIENT. 07/08/2019 [facility] - CHW CALLED PATIENT-CONTACT NUMBER- NO ANSWER-NO VOICEMAIL SET UP. - PATIENT DOES NOT HAVE CEMENT FINISHER APPRENTICE FOR THIS AREA FOR INSURANCE. - PLEASE PROVIDE CHW CONTACT NUMBER [phone] TO PATIENT FOR FOLLOW UP CONTACT. Substance Use/Overdose 10/31/2016 [facility] Member could benefit from a dual diagnosis evaluation for substance and mental health evaluation for treatment. E.D. VISIT COUNT (12 MO.) 1 [facility] 14 [facility] TOTAL 15 NOTE: Visits indicate total known visits. ED/UCC VISIT TRACKING (12 MO.) 08/25/2019 11:58 [facility] [place] TYPE: Emergency COMPLAINT: - SOB, COUGH 07/19/2019 06:41 [facility] [place] TYPE: Emergency COMPLAINT: - COUGHING UP BLOOD DIAGNOSES: - Acute bronchitis, unspecified - Allergy status to penicillin - Cough - Other halfway (current) drug therapy - Nicotine dependence, unspecified, uncomplicated - Insomnia, unspecified - Post-traumatic stress disorder, unspecified - Allergy status to narcotic agent status 07/09/2019 06:25 [facility] [place] TYPE: Emergency COMPLAINT: - ABD PAIN, VOMITING DIAGNOSES: - Allergy status to penicillin - Post-traumatic stress disorder, unspecified - Viral infection, unspecified - Nicotine dependence, unspecified, uncomplicated - Other halfway (current) drug therapy - Allergy status to narcotic agent status 07/07/2019 12:43 [facility] [place] TYPE: Emergency COMPLAINT: - COUGH, BODY ACHES- MSE TO CLINIC DIAGNOSES: - Acute pharyngitis, unspecified - Cough 06/26/2019 08:22 [facility] TYPE: Emergency COMPLAINT: - Anxiety disorder, unspecified - Irritability and anger DIAGNOSES: 1. Suicidal ideations 2. Other psychoactive substance abuse, uncomplicated 3. Acute upper respiratory infection, unspecified 4. Homelessness 03/27/2019 12:06 [facility] TYPE: Emergency COMPLAINT: - NECK PAIN DIAGNOSES: - Other halfway (current) drug therapy - Cervicalgia - Radiculopathy, cervical region - Allergy status to narcotic agent status - Post-traumatic stress disorder, unspecified - Allergy status to penicillin - Nicotine dependence, unspecified, uncomplicated 03/26/2019 16:14 [facility] [place] TYPE: Emergency COMPLAINT: - NECK PAIN, NO INJURY DIAGNOSES: - Cervicalgia - Proc/trtmt not crd out d/t pt lv bef seen by [facility] 02/17/2019 12:43 [facility] [place] TYPE: Emergency COMPLAINT: - RASH DIAGNOSES: - Rash and other nonspecific skin eruption - Allergy status to penicillin - Allergy status to narcotic agent status - Other fruit press operator (current) drug therapy - Chronic sinusitis, unspecified - Nicotine dependence, unspecified, uncomplicated - Diarrhea, unspecified - Migraine, unsp, not intractable, without status migrainosus 02/07/2019 11:47 [facility] [place] TYPE: Emergency COMPLAINT: - POSSIBLE ALLERGIC REACTION DIAGNOSES: - Allergy status to penicillin - Allergy status to narcotic agent status - Other halfway (current) drug therapy - Acquired absence of [...] status to narcotic agent status - Other fruit press operator (current) drug therapy - Postprocedural hypothyroidism 01/08/2019 17:36 [facility] [place] TYPE: Emergency COMPLAINT: - NECK PAIN/NON INJURY DIAGNOSES: - Nicotine dependence, unspecified, uncomplicated - Spinal stenosis, cervical region - Cervicalgia - Allergy status to narcotic agent status - Acquired absence of other organs - Allergy status to penicillin - Other halfway (current) drug therapy - Other chronic pain 12/15/2018 13:31 [facility] [place] TYPE: Emergency COMPLAINT: - BACK AND NECK PAIN DIAGNOSES: - Nicotine dependence, unspecified, uncomplicated - Allergy status to other antibiotic agents status - Postprocedural hypothyroidism - Allergy status to narcotic agent status - Radiculopathy, cervical region - Other halfway (current) drug therapy - Cervicalgia - Post-traumatic [...] unspecified - Other halfway (current) drug therapy 11/03/2018 11:38 [facility] [place] TYPE: Emergency COMPLAINT: - RASH,SOB DIAGNOSES: - Nicotine dependence, unspecified, uncomplicated - Cough - Allergy status to narcotic agent status - Post-traumatic stress disorder, unspecified - Allergy status to penicillin - Bronchitis, not specified as acute or chronic - Other fruit press operator (current) drug therapy 09/01/2018 13:22 [facility] [...] INPATIENT VISIT TRACKING (12 MO.) 06/26/2019 20:10 [facility] [place] TYPE: Psychiatric Services DIAGNOSES: 0. Major [...] of self-harm 2. Spinal stenosis, site unspecified [email or web address]
[2019-08-25] MEDS ORDERED: AMBIEN10 MG PO (12:26)
[2019-08-25] MEDS ORDERED: VENTOLIN HFA18 GM INH (14:18)
[2019-08-25] MEDS ORDERED: TESSALON PERLE100 MG PO (14:18)
[2019-08-25] MEDS ORDERED: PREDNISONE20 MG PO (14:18)
== END 2019-08-25 14:28 | disposition home or self-care (01) ==
LOC: ED 11:58
DX: J40 Bronchitis, not specified as acute or chronic (principal); F43.10 Post-traumatic stress disorder, unspecified; F17.200 Nicotine dependence, unspecified, uncomplicated; Z88.0 Allergy status to penicillin; Z88.5 Allergy status to narcotic agent; Z79.899 Other long term (current) drug therapy
CPT/HCPCS: 71045; 80053; 85025; 87502; 94640; 99283-25; 99406; J1100

== ENCOUNTER 2020-05-06 11:44 | Emergency (ER) | payer OTHER ==
[~2020-05-06] VITALS: Ht 162.6 cm; Wt 81.7 kg
[~2020-05-06 11:44] MED LIST changes: +TESSALON PERLE100 MG PO
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
[2020-05-06] MEDS ORDERED: BUPRENORP-NALO1 EAC1 SL (12:41)
[2020-05-06] MEDS ORDERED: PRAZOSIN HCL5 MG PO (12:42)
[2020-05-06] MEDS ORDERED: EUTHYROX150 MCG PO (12:42)
--- NOTE | 2020-05-08 20:18 | PATH ---
[facility] [address], [place] [address] Signed ORDERING PHYSICIAN: Arun Puente MD PATIENT NAME: FABIO OCAMPOEN GENDER: Daniel : 1970 SPECIMEN(S): MOLECULAR PATHOLOGY RESULTS: SARS-CoV-2 Not Detected ADDITIONAL NOTES.: The [place] Fusion SARS-CoV-2 Assay is a multiplex real-time PCR (RT-PCR) in vitro diagnostic test intended for the qualitative detection of RNA from SARS-CoV-2 from individuals who meet COVID-19 clinical and/or epidemiological criteria. In general, SARS-CoV-2 RNA can be detected during the acute phase of infection. Positive results indicate the presence of SARS-CoV-2 RNA. Clinical correlation with patient history and other diagnostic information is necessary to determine patient infection status. Positive results do not rule out bacterial infection or co-infection with other viruses. Negative results do not preclude SARS-CoV-2 infection and should not be used as the sole basis for patient management decisions. Negative results must be combined with other clinical observations, patient history, and epidemiological information. The [place] Fusion SARS-CoV-2 Assay is not yet approved or cleared by the [place] FDA. When there are no FDA-approved or cleared tests available, and other criteria are met, FDA can make tests available under an emergency access mechanism called an Emergency Use Authorization (EUA). The EUA for this test is supported by the Forming And Assembling Supervisor of Health and Human Service's (HHS's) declaration that circumstances exist to justify the emergency use of in vitro diagnostics for the detection and/or diagnosis of the virus that causes COVID-19. This EUA will remain in effect for the duration of the COVID-19 declaration justifying emergency of IVDs, unless it is terminated or revoked by FDA, after which the test may no longer be used. The [place] Fusion SARS-CoV-2 Assay is for use only under EUA in US laboratories certified under the Clinical Laboratory Improvement Amendments of 1988 (CLIA) to perform high complexity tests. [facility] is certified under CLIA to perform high complexity PATIENT NAME: FABIO OCAMPO PATHOLOGY DATE OF : [birth year] REPORT #: [id number] PHYSICIAN: NAM GALDAMEZ PCP: OTHER PCP REPORT IS CONFIDENTIAL AND NOT TO BE RELEASED WITHOUT AUTHORIZATION [facility] [address] [place] [id number] Signed clinical laboratory testing. PERFORMING LABORATORY.: Molecular testing was performed by [facility] [place] [address] (Soil Expert: Ton Espinal D.O.; CLIA#: [id number]) Diagnostician: System Interface Pathologist Electronically Signed 05/08/2020 Copies: ~ PATIENT NAME: FABIO OCAMPO PATHOLOGY DATE OF : [birth year] REPORT #: [id number] PHYSICIAN: NAM GALDAMEZ PCP: OTHER PCP REPORT IS CONFIDENTIAL AND NOT TO BE RELEASED WITHOUT AUTHORIZATION
== END 2020-05-08 14:42 | disposition short-term general hospital (02) ==
LOC: ED 11:44
DX: F22 Delusional disorders (principal); R45.851 Suicidal ideations; R45.850 Homicidal ideations; F43.10 Post-traumatic stress disorder, unspecified; F31.9 Bipolar disorder, unspecified; F17.200 Nicotine dependence, unspecified, uncomplicated; Z88.5 Allergy status to narcotic agent; Z88.0 Allergy status to penicillin; Z79.899 Other long term (current) drug therapy
CPT/HCPCS: 80053; 80176; 81001; 84443; 84703; 85025; 96372; 99285-25; G0480; J1200; J1630; J1790; J2060; J3486

== ENCOUNTER 2020-06-19 14:27 | Emergency (ER) | payer OTHER ==
[~2020-06-19] VITALS: Ht 162.6 cm; Wt 74.4 kg
[~2020-06-19 14:27] MED LIST changes: +BUPRENORP-NALO1 EAC1 SL; +EUTHYROX150 MCG PO; +PRAZOSIN HCL5 MG PO
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
[2020-06-19] MEDS ORDERED: LATUDA40 MG PO (15:36)
--- NOTE | 2020-06-19 17:21 | EKG ---
[facility] [address] [place] [address] Signed Normal sinus rhythm Normal ECG When compared with ECG of 09-JUL-2019 08:14, Nonspecific T wave abnormality now evident in Anterior leads Confirmed by DORIAN BLAS DO ([id number]) on 06/19/2020 5:20:55 PM Electronically Signed By: DORIAN BLAS DO 06/19/20 1721 PATIENT NAME: TERRENCEFABIO Electrocardiogram DATE OF : [birth year] PHYSICIAN: DORIAN BLAS DO REPORT #: [id number] REPORT IS CONFIDENTIAL AND NOT TO BE RELEASED WITHOUT AUTHORIZATION
== END 2020-06-20 09:29 | disposition short-term general hospital (02) ==
LOC: ED 14:27
DX: F20.9 Schizophrenia, unspecified (principal); F43.10 Post-traumatic stress disorder, unspecified; R45.850 Homicidal ideations; G47.00 Insomnia, unspecified; F32.9 Major depressive disorder, single episode, unspecified; F41.9 Anxiety disorder, unspecified; Z88.5 Allergy status to narcotic agent; Z88.0 Allergy status to penicillin; Z79.899 Other long term (current) drug therapy
CPT/HCPCS: 80053; 80176; 81001; 84443; 84703; 85025; 93005; 93010; 99285-25; G0480

== ENCOUNTER 2020-07-06 21:42 | Emergency (ER) | payer OTHER ==
[~2020-07-06] VITALS: Ht 162.6 cm; Wt 74.4 kg
[~2020-07-06 21:42] MED LIST changes: +LATUDA40 MG PO
--- OUTSIDE RECORDS SUMMARY | 2020-07-06 21:46 | XMS ---
PreManage Notification: FABIO OCAMPO Security Acid Filler Events 1 event(s) in the past 18 months Most recent security events: Elopement at [facility] 03/26/2019 16:14 Details: PATIENT LWBS CRITERIA MET - Group Notification - 6 ED Visits in 6 Months - [facility] - Has Care Guidelines - [facility] - 2 Visits in [address] [facility]: Critical 05/20/2019-[facility] PHONE: [phone] DANNIELLE BESS Physician Current [facility]: [phone] [facility] PHONE: [phone] Jaylen SORIANO [facility] 10/03/2019-Current PHONE: [phone] YO SORIANO Physician Fisher Oyster Current PHONE: [phone] BEATRIZ YING Internal Medicine: Pulmonary Disease 08/26/2019-Current PHONE: Unknown SHIRLENE RILEY Automobile Salesman/Machinery Rigger [facility] PHONE: [phone] Shirlene Riley Automobile Salesman/Machinery Rigger [facility] PHONE: Unknown Shreya Barnett Church Business Administrator: Clinical 06/26/2019-Current PHONE: [phone] Guidelines Source: [facility] [place] Guidelines Date: 01/09/2019 Care Coordination: Mental health services are being provided by [employer].\T\nbsp; Please contact [employer] with mental health concerns.\T\nbsp; Trino/Mukul Karen: \T\nbsp; Ainsley: [phone]. Care History Substance Use/Overdose 10/18/2019 [facility] Pt currently on the MAT program at [facility]. Do not prescribe narcotics. 10/31/2016 [facility] Member could benefit from a dual diagnosis evaluation for substance and mental health evaluation for treatment. Medical/Surgical 08/26/2019 [facility] Patient phone number for \T\quot;Home\T\quot; and address on file\T\nbsp;is for residential care with [facility]\T\nbsp;that she is no longer with as of 08/06/2019.\T\nbsp; Tried to reach patient by cell phone, but it just rings; does not go to [employer]. 08/26/2019 [facility] - PATIENT HAS AN ESTABLISHING CARE APT WITH DR HENDERSON ON 09/09/19. - Patient is currently established with [facility]. If patient is seen in the ED during business hours. Please contact CHWs at [facility]. - Care Recommendation: If this patient has had 5 or more Emergency Department visits in the last 12 months.\T\nbsp; Patient will require education on the scope and purpose of the ED as an acute care provider not a Primary Care Provider and should not be utilized for chronic conditions.\T\nbsp; These are guidelines and the provider should exercise clinical judgment when providing care. 07/19/2019 [facility] - [facility] REFERRAL MADE-PATIENT HAS OPEN MEDICAID CARD- CURRENTLY RESIDES AT A [facility]. - CHW SPOKE WITH PATIENT-DISCUSSED THE NEED FOR PCP FOLLOW UP AND THE NEED FOR A PRIMARY IN THE AREA. - PATIENT WOULD LIKE TO ESTABLISH CARE WITH A PROVIDER IN THE AREA-[facility] REFERRAL MADE. - PATIENT HAS A FOLLOW UP APT WITH PCP DANNIELLE BESS IN [place] ON 07/23/19. E.D. VISIT COUNT (12 MO.) [facility] 4 [facility]. 2 [facility] [place] 7 [facility]. TOTAL 14 NOTE: Visits indicate total known visits. ED/UCC VISIT TRACKING (12 MO.) 07/06/2020 21:[address] [facility] [place] TYPE: Emergency COMPLAINT: - ABDOMINAL PAIN 06/19/2020 14:[address] [facility] [place] TYPE: Emergency COMPLAINT: - MEDICAL CLEARANCE DIAGNOSES: - Allergy status to narcotic agent - Post-traumatic stress disorder, unspecified - Homicidal ideations - Insomnia, unspecified - Anxiety disorder, unspecified - Other terminal makeup operator (current) drug therapy - Major depressive disorder, single episode, unspecified - Allergy status to penicillin - Schizophrenia, unspecified 05/06/2020 11:[address] [facility] [place] TYPE: Emergency COMPLAINT: - MEDICAL CLEARANCE DIAGNOSES: - Allergy status to narcotic agent - Homicidal ideations - Other terminal makeup operator (current) drug therapy - Allergy status to penicillin - Post-traumatic stress disorder, unspecified - Suicidal ideations - Bipolar disorder, unspecified - Nicotine dependence, unspecified, uncomplicated - Delusional disorders 04/27/2020 01:22 [facility] [place] TYPE: Emergency DIAGNOSES: - Right upper quadrant pain - abdominal pain 03/25/2020 12:40 [facility] [place] TYPE: Urgent Care DIAGNOSES: - Other psychoactive substance abuse, uncomplicated - Nicotine dependence, cigarettes, uncomplicated - Other specified diseases of gallbladder - Postprocedural hypothyroidism - Encounter for follow-up examination after completed treatment for conditions other than malignant neoplasm 03/23/2020 13:51 [facility] [place] TYPE: Emergency [...] initial encounter for closed fracture 09/10/2019 12:35 [facility] [place] TYPE: Emergency DIAGNOSES: - NECK PAIN BLURRED VISION - Cervicalgia 08/25/2019 11:58 [facility] [place] TYPE: Emergency COMPLAINT: - SOB, COUGH DIAGNOSES: - Bronchitis, not specified as acute or chronic - Allergy status to narcotic agent - Cough - Nicotine dependence, unspecified, uncomplicated - Other terminal makeup operator (current) drug therapy - Post-traumatic stress disorder, unspecified - Allergy status to penicillin 07/19/2019 06:41 [facility] [place] TYPE: Emergency COMPLAINT: - COUGHING UP BLOOD DIAGNOSES: - Acute bronchitis, unspecified - Allergy status to penicillin - Cough - Other half-way (current) drug therapy - Nicotine dependence, unspecified, uncomplicated - Insomnia, unspecified - Post-traumatic stress disorder, unspecified - Allergy status to narcotic agent 07/09/2019 06:25 [facility] [place] TYPE: Emergency COMPLAINT: - ABD PAIN, VOMITING DIAGNOSES: - Allergy status to penicillin - Post-traumatic stress disorder, unspecified - Viral infection, unspecified - Nicotine dependence, unspecified, uncomplicated - Other terminal makeup operator (current) drug therapy - Allergy status to narcotic agent 07/07/2019 12:43 [facility] [place] TYPE: Emergency COMPLAINT: - COUGH, BODY ACHES- MSE TO CLINIC DIAGNOSES: - Acute pharyngitis, unspecified - Cough INPATIENT VISIT TRACKING (12 MO.) 06/20/2020 14:30 [facility] [place] TYPE: Psychiatric Services DIAGNOSES: 0. Major depressive disorder, recurrent severe without psychotic features 1. Unspecified psychosis not due to a substance or known physiological condition 2. Suicidal ideations 2. Other psychoactive substance dependence, uncomplicated 2. Opioid dependence with withdrawal 2. Post-traumatic stress disorder, unspecified 2. Hypothyroidism, unspecified 2. Other stimulant use, unspecified with stimulant-induced psychotic disorder, unspecified [email or web address]
[2020-07-07] MEDS ORDERED: OMEPRAZOLE20 MG PO (01:31)
== END 2020-07-07 02:51 | disposition home or self-care (01) ==
LOC: ED 21:42
DX: K30 Functional dyspepsia (principal); F17.200 Nicotine dependence, unspecified, uncomplicated; Z88.5 Allergy status to narcotic agent; Z88.0 Allergy status to penicillin
CPT/HCPCS: 80053; 80176; 81001; 83690; 84443; 85025; 99284; G0480